=== PATIENT | female | born 1995 | race African-American/Black ===

== ENCOUNTER 2017-02-18 12:17 | Emergency (ER) | payer MEDICAID, OTHER ==
[~2017-02-18] VITALS: Ht 188 cm; Wt 57.2 kg
[~2017-02-18 12:17] MED LIST: MACR100C PO; RANI150 PO
[2017-02-18 12:28] VITALS: BP 113/58; PULSE 68; RESP 16; TEMP 98.4; O2SAT 99
[2017-02-18] MEDS ORDERED: ACYC200C66 PO (13:35)
--- NOTE | 2017-02-18 13:42 | PD ---
HPI Chief Complaint: Skin Problem Time Seen by Provider: 13:00 Travel History International Travel<30 days: No Contact w/Intl Traveler<30days: No Traveled to known affect area: No History of Present Illness HPI 21-year-old female presents to the emergency room for evaluation of herpes outbreak. Patient has had herpes diagnosis for the past 6 months. She got diagnosed during and is on acyclovir throughout her . States she was last on it one month ago. Patient states she felt pain in her genital area about 5 days ago and noticed a lesion there yesterday. She denies fever, chills, nausea, and vomiting. PFSH Past Medical History Medical History: Denies Significant Hx Anxiety: Yes Diminished Hearing: No Headaches: Yes Medical other: Yes (HSV) Immunizations Current: Yes ?: Not : 1 Para: 1 Past Surgical History Section: Yes Social History Alcohol Use: No Tobacco Use: No Substance Use: Yes Allergies-Medications (Allergen,Severity, Reaction): Coded Allergies: Zofran (Verified Allergy, Intermediate, hives, itchy rash, 02/18/17) Penicillin (Verified Allergy, Unknown, HIVES, 02/18/17) Reported Meds & Prescriptions Reported Meds & Active Scripts Active Acyclovir 200 Mg Cap 200 Mg PO 5 TIMES A DAY 10 Days Review of Systems Except as stated in HPI: all other systems reviewed are Neg Physical Exam Narrative GENERAL: Well-nourished, well-developed female in no acute distress. Afebrile. Ambulatory. SKIN: Focused skin assessment warm/dry. There is a single shallow, circular ulcer to the left lower buttocks. It is tender to palpation. HEAD: Normocephalic. EYES: No scleral icterus. No injection or drainage. NECK: Supple, trachea midline. No JVD or lymphadenopathy. CARDIOVASCULAR: Regular rate and rhythm without murmurs, gallops, or rubs. RESPIRATORY: Breath sounds equal bilaterally. No accessory muscle use. PSYCHIATRIC: No delusional thought processes. No hallucinations. Data Data Last Documented VS Vital Signs Date Time Temp Pulse Resp B/P Pulse Ox O2 Delivery O2 Flow Rate FiO2 02/18/17 12:28 98.4 68 16 113/58 99 MDM Medical Decision Making Medical Screen Exam Complete: Yes Emergency Medical Condition: Yes Medical Record Reviewed: Yes Differential Diagnosis Herpes simplex, shingles, bacterial infection Narrative Course 21-year-old female presents to the emergency room for evaluation of possible herpes outbreak. She was diagnosed with genital herpes 6 months ago. She was last on acyclovir one month ago. Patient denies associated malaise, fever, and chills. Physical exam reveals one single shallow ulcer to the left perineal region. It is tender to palpation. Given early presentation, patient will be treated with acyclovir. Patient told to follow-up the patient carrier or return to the emergency room for worsening symptoms. She understands and agrees to plan. Diagnosis Primary Impression: Genital herpes Qualified Code: A60.04 - Herpes simplex vulvovaginitis Referrals: [facility] Primary Care Physician Patient Instructions: General Instructions, Genital Herpes Simplex (ED) Additional Instructions: Rest and drink plenty of fluids. Take acyclovir as directed, until gone. Follow up with a primary care physician. Return to emergency room for worsening symptoms, as discussed. Med/Other Pt SpecificInfo: Prescription(s) given Scripts Acyclovir 200 Mg Tum053 Mg PO 5 TIMES A DAY 10 Days Ref 0 Prov:Judy Cook MD 02/18/17 Disposition: 01 DISCHARGE HOME Condition: Stable Jory Willams Feb 18, 2017 13:42
== END 2017-02-18 13:48 | disposition home or self-care (01) ==
LOC: PHEFT 12:17
DX: A60.04 Herpesviral vulvovaginitis (principal)
CPT/HCPCS: 99283

== ENCOUNTER 2017-10-09 14:52 | Emergency (ER) | payer MEDICAID ==
[~2017-10-09 14:52] MED LIST changes: +ACYC200C66 PO; -MACR100C PO; -RANI150 PO
[2017-10-09 14:53] VITALS: BP 132/79; PULSE 87; RESP 14; TEMP 98.3; O2SAT 100
[2017-10-09] MEDS ORDERED: ACETAMINOPHEN 500 MG CPLT PO ONE (15:30)
--- NOTE | 2017-10-09 15:57 | PD ---
HPI Chief Complaint: Cold / Flu Symptoms Time Seen by Provider: 15:07 Travel History International Travel<30 days: No Contact w/Intl Traveler<30days: No Traveled to known affect area: No History of Present Illness HPI This is a 22-year-old early female who presents to the emergency department with nasal congestion, sore throat, nonproductive cough and myalgias for 2 days, constant, moderate severity. She is otherwise healthy. [facility] Past Medical History Anxiety: Yes Diminished Hearing: No Headaches: Yes Immunizations Current: Yes ?: LMP: 08/29/18 : 1 Para: 1 Past Surgical History Section: Yes Social History Alcohol Use: No Tobacco Use: No Substance Use: Yes Allergies-Medications (Allergen,Severity, Reaction): Coded Allergies: ondansetron (Unverified Allergy, Intermediate, hives, itchy rash, 10/09/17) penicillin G (Unverified Allergy, Unknown, HIVES, 10/09/17) Reported Meds & Prescriptions Reported Meds & Active Scripts Active No Active Prescriptions or Reported Medications Review of Systems Except as stated in HPI: all other systems reviewed are Neg Physical Exam Narrative GENERAL:Well appearing, no acute distress SKIN: Focused skin assessment warm and dry. HEAD: Atraumatic. Normocephalic. EYES: Pupils equal and round. No injection or drainage. ENT: Moist mucous membranes. Mild posterior pharyngeal erythema with no exudates. NECK: Tender anterior cervical lymphadenopathy. CARDIOVASCULAR: Regular rate and rhythm. No murmur appreciated. RESPIRATORY: Clear to auscultation. Breath sounds equal bilaterally. GASTROINTESTINAL: Abdomen soft, non-tender, nondistended. MUSCULOSKELETAL: No obvious deformities. NEUROLOGICAL: Awake and alert. No obvious cranial nerve deficits. Moving all extremities. PSYCHIATRIC: Appropriate mood and affect; insight and judgment normal. Data Data Last Documented VS Vital Signs Date Time Temp Pulse Resp B/P (MAP) Pulse Ox O2 Delivery O2 Flow Rate FiO2 10/09/17 14:53 98.3 87 14 132/79 (96) 100 Room Air Orders Orders Group A Rapid Strep Screen (10/09/17 15:14) Influenzae A/B Antigen (10/09/17 15:14) Acetaminophen (Tylenol) (10/09/17 15:30) Strep Culture (Group A) (10/09/17 15:20) MDM Medical Decision Making Medical Screen Exam Complete: Yes Emergency Medical Condition: Yes Interpretation(s) Afebrile, no tachycardia, normotensive Influenza negative Strep negative Differential Diagnosis Strep pharyngitis, viral pharyngitis, influenza, viral syndrome Narrative Course This is a 22-year-old female early who presents to the emergency department with sore throat, rhinorrhea and cough. She is nontoxic appearing and has normal vital signs. Influenza and rapid strep were negative. I suspect patient has viral syndrome. I advised her to continue orally hydrating and she was instructed to take Tylenol for pain. Diagnosis Primary Impression: Viral syndrome Patient Instructions: General Instructions Additional Instructions: If you develop severe chest pain, shortness of breath, sweating, lightheadedness , dizziness or difficulty breathing return to the emergency department immediately. Followup with your primary care physician in 2-3 days if your symptoms are not resolved. Med/Other Pt SpecificInfo: No Change to Meds Scripts No Active Prescriptions or Reported Meds Disposition: 01 DISCHARGE HOME Condition: Stable Maria Antonia Hadley MD Oct 09, 2017 15:57
== END 2017-10-09 16:19 | disposition home or self-care (01) ==
LOC: NEPD 14:52
DX: O98.511 Other viral diseases complicating pregnancy, first trimester (principal); B34.9 Viral infection, unspecified; O99.341 Other mental disorders complicating pregnancy, first trimester; F41.9 Anxiety disorder, unspecified; Z3A.00 Weeks of gestation of pregnancy not specified
CPT/HCPCS: 87081; 87804; 87880; 99283

== ENCOUNTER 2017-10-27 15:30 | Emergency (ER) | payer MEDICAID ==
[~2017-10-27] VITALS: Ht 188 cm; Wt 54.2 kg
[2017-10-27 15:37] VITALS: BP 128/62; PULSE 66; RESP 16; TEMP 98.9; O2SAT 100
[2017-10-27] MEDS ORDERED: ACETAMINOPHEN 325 MG TAB PO ONE (16:00)
[2017-10-27] MEDS ORDERED: PREN29TA PO (16:12)
[2017-10-27] MEDS ORDERED: SODIUM CHLOR 0.9% 1000 ML INJ 1,000 ML IV ONE (16:15)
[2017-10-27] MEDS ORDERED: METOCLOPRAMIDE INJ 10 MG in SODIUM CHLORIDE 0.9% INJ 50 ML IV ONE (16:15)
--- NOTE | 2017-10-27 16:32 | PD ---
HPI Chief Complaint: Related Problem Time Seen by Provider: 16:00 Travel History International Travel<30 days: No Contact w/Intl Traveler<30days: No Traveled to known affect area: No History of Present Illness HPI 22yo F who is about 8 weeks 1 day by LMP of 08/31/17 here with c/o nausea and vomiting for 3 weeks. Said she has not been able to keep much down. Said she did go to [facility] 2 days ago and had US that showed IUP with FHR. Said she has had some left sided abdominal pain intermittently for 2 days. Said it is sharp. Denies any fever, chest pain, sob, vaginal discharge or bleeding. PFSH Past Medical History Medical History: Denies Significant Hx Anxiety: Yes Diminished Hearing: No Headaches: Yes Immunizations Current: Yes Tetanus Vaccination: < 5 Years Influenza Vaccination: No ?: LMP: 08/29/17 : 1 Para: 1 Miscarriage: 0 : 0 Past Surgical History Section: Yes Social History Alcohol Use: No Tobacco Use: No Substance Use: No Allergies-Medications (Allergen,Severity, Reaction): Coded Allergies: ondansetron (Unverified Allergy, Intermediate, hives, itchy rash, 10/27/17) penicillin G (Unverified Allergy, Unknown, HIVES, 10/27/17) Reported Meds & Prescriptions Reported Meds & Active Scripts Active Reported Plus Iron 29-1 mg ( Vit-Iron Carbonyl) Unknown Strength Tab Unknown Dose PO DAILY Review of Systems Except as stated in HPI: all other systems reviewed are Neg Physical Exam Narrative GENERAL: 22yo F not in distress. SKIN: Focused skin assessment warm/dry. HEAD: Atraumatic. Normocephalic. CARDIOVASCULAR: Regular rate and rhythm. No murmur appreciated. RESPIRATORY: No accessory muscle use. Clear to auscultation. Breath sounds equal bilaterally. GASTROINTESTINAL: Abdomen soft, non-tender, nondistended. No RLQ or LLQ ttp. No rebound tenderness or guarding. PELVIC: MUSCULOSKELETAL: No obvious deformities. No clubbing. No cyanosis. No edema. NEUROLOGICAL: Awake and alert. No obvious cranial nerve deficits. Motor grossly within normal limits. Normal speech. PSYCHIATRIC: Appropriate mood and affect; insight and judgment normal. Data Data Last Documented VS Vital Signs Date Time Temp Pulse Resp B/P (MAP) Pulse Ox O2 Delivery O2 Flow Rate FiO2 10/27/17 17:27 16 10/27/17 16:03 68 10/27/17 15:37 98.9 128/62 (84) 100 Orders Orders Beta Hcg (Quant/Titer) (10/27/17 16:00) Complete Blood Count With Diff (10/27/17 16:00) Comprehensive Metabolic Panel (10/27/17 16:00) Gc And Chlamydia Pcr (10/27/17 16:00) Wet Prep Profile (10/27/17 16:00) Urinalysis - C+S If Indicated (10/27/17 16:00) Acetaminophen (Tylenol) (10/27/17 16:00) Metoclopramide Inj (Reglan Inj) (10/27/17 16:15) Sodium Chlor 0.9% 1000 Ml Inj (Ns 1000 M (10/27/17 16:15) Ed Poc Ultrasound (10/27/17 ) Urine Culture (10/27/17 16:20) Metronidazole (Flagyl) (10/27/17 18:00) Potassium Chloride (Kcl) (10/27/17 18:00) Nitrofurantoin Monohyd Macrocr (Macrobid (10/27/17 18:00) Labs Laboratory Tests Test 10/27/17 16:20 10/27/17 16:25 10/27/17 16:50 10/27/17 16:58 Urine Color YELLOW Urine Turbidity CLEAR Urine pH 7.0 Urine Specific [place] 1.027 Urine Protein NEG mg/dL Urine Glucose (UA) NEG mg/dL Urine Ketones TRACE mg/dL Urine Occult Blood NEG Urine Nitrite NEG Urine Bilirubin NEG Urine Leukocyte Esterase SMALL Urine RBC 4-9 /hpf Urine WBC 9-14 /hpf Urine WBC Clumps FEW Urine Squamous Epithelial Cells 0-5 /hpf Urine Mucus FEW /lpf Microscopic Urinalysis Comment CULTURE INDICATED White Blood Count 5.6 TH/MM3 Red Blood Count 3.96 MIL/MM3 Hemoglobin 12.4 GM/DL Hematocrit 36.6 % Mean Corpuscular Volume 92.5 FL Mean Corpuscular Hemoglobin 31.2 PG Mean Corpuscular Hemoglobin Concent 33.7 % Red Cell Distribution Width 12.6 % Platelet Count 266 TH/MM3 Mean Platelet Volume 8.2 FL Neutrophils (%) (Auto) 62.1 % Lymphocytes (%) (Auto) 28.9 % Monocytes (%) (Auto) 7.1 % Eosinophils (%) (Auto) 0.4 % Basophils (%) (Auto) 1.5 % Neutrophils # (Auto) 3.5 TH/MM3 Lymphocytes # (Auto) 1.6 TH/MM3 Monocytes # (Auto) 0.4 TH/MM3 Eosinophils # (Auto) 0.0 TH/MM3 Basophils # (Auto) 0.1 TH/MM3 CBC Comment DIFF FINAL Differential Comment Clue Cells (Wet Prep) NONE SEEN Vaginal Trichomonas (Wet Prep) PRESENT Vaginal Yeast (Wet Prep) NONE SEEN Blood Urea Nitrogen 8 MG/DL Creatinine 0.70 MG/DL Random Glucose 88 MG/DL Total Protein 7.0 GM/DL Albumin 3.6 GM/DL Calcium Level 8.1 MG/DL Alkaline Phosphatase 48 U/L Aspartate Amino Transf (AST/SGOT) 23 U/L Alanine Aminotransferase (ALT/SGPT) 17 U/L Total Bilirubin 0.4 MG/DL Sodium Level 135 MEQ/L Potassium Level 3.2 MEQ/L Chloride Level 104 MEQ/L Carbon Dioxide Level 23.2 MEQ/L Anion Gap 8 MEQ/L Estimat Glomerular Filtration Rate 125 ML/MIN Human Chorionic Gonadotropin, Quant 313999 MIU/ML MDM Medical Decision Making Medical Screen Exam Complete: Yes Emergency Medical Condition: Yes Differential Diagnosis Hyperemesis gravidarum vs. dehydration vs. electrolyte abnormality vs. UTI Narrative Course 22yo F who is 8weeks has been nauseous and having intermittent vomiting for 3 weeks. Vital signs normal. Will check electrolytes, UA and give reglan and NS IVF. Pt said she has left lower abdominal pain but no tenderness on exam. Will give acetaminophen. Bedside US showed IUP. Labs reviewed, no leukocytosis. Mild hypokalemia, replaced orally. CG [id number]. UA showed trace ketone. WBC 9-14. Will cover with macrobid. Wet prep showed positive trichomonas. Pt given first dose of metronidazole and macrobid. Although there is conflicting studies regarding metronidazole for trichomoniasis in first trimester, I discussed with OB hospitalist Dr. Tran and she said she also still gives it. Pt was given reglan and NS IVF. Reevaluated at bedside and is tolerating PO now. Said nausea resolved. Return precautions given. Procedures Procedure Narrative Emergency Department Pelvic ultrasound was performed with patient consent. The curvilinear probe was used in the transverse and sagittal views within the suprapubic region revealing single intrauterine . heart rate was 167bpm. Diagnosis Primary Impression: Vaginal trichomoniasis Additional Impression: Nausea & vomiting Qualified Codes: R11.2 - Nausea with vomiting, unspecified Patient Instructions: General Instructions Departure Forms: Tests/Procedures Additional Instructions: Please follow up with your OBGYN in 2-3 days. Return to the ED if symptoms worsen. Med/Other Pt SpecificInfo: Prescription(s) given Scripts Acetaminophen (Tylenol) 325 Mg Tab 650 MG PO Q6H Y for PAIN SCALE 1 TO 4, #20 TAB 0 Refills Prov: Millie Garcia DO 10/27/17 Nitrofurantoin Monohydrate Macrocrystals (Macrobid) 100 Mg Cap 100 MG PO BID for Infection for 5 Days, #10 CAP 0 Refills Prov: Millie Garcia DO 10/27/17 Metronidazole (Metronidazole) 500 Mg Tab 500 MG PO BID for Infection for 7 Days, #14 TAB 0 Refills Prov: Millie Garcia DO 10/27/17 Disposition: 01 DISCHARGE HOME Condition: Stable Millie Garcia DO Oct 27, 2017 16:32
[2017-10-27 16:33] LABS: AUTOMATED NEUTROPHIL # 3.5 TH/MM3 (1.8-7.7); BASOPHIL # 0.1 TH/MM3 (0-0.2); BASOPHIL % 1.5 % (0.0-2.0); EOSINOPHIL % 0.4 % (0.0-4.0); HEMATOCRIT 36.6 % (35.0-46.0); HEMOGLOBIN 12.4 GM/DL (11.6-15.3); LYMPH % 28.9 % (9.0-44.0); LYMPHOCYTE # 1.6 TH/MM3 (1.0-4.8); MEAN CELL VOLUME 92.5 FL (80.0-100.0); MEAN CORPUSCULAR HEMOGLOBIN 31.2 PG (27.0-34.0); MEAN CORPUSCULAR HGB CONC 33.7 % (32.0-36.0); MEAN PLATELET VOLUME 8.2 FL (7.0-11.0); MONO % 7.1 % (0.0-8.0); MONOCYTE # 0.4 TH/MM3 (0-0.9); NEUT % 62.1 % (16.0-70.0); PLATELET COUNT 266 TH/MM3 (150-450); RED BLOOD COUNT 3.96 MIL/MM3 (4.00-5.30); RED CELL DISTRIBUTION WIDTH 12.6 % (11.6-17.2); WHITE BLOOD COUNT 5.6 TH/MM3 (4.0-11.0)
[2017-10-27 16:34] LABS: BILIRUBIN, URINE NEG (NEG); BLOOD, URINE NEG (NEG); GLUCOSE,URINE NEG (NEG); KETONE, URINE TRACE mg/dL (NEG); NITRITE,URINE NEG (NEG); URINE LEUKOCYTE ESTERASE SMALL (NEG)
[2017-10-27 16:44] LABS: URINE COLOR YELLOW (YELLW/STRAW)
[2017-10-27 16:45] LABS: MUCUS URINE FEW /lpf (OCC); WHITE BLOOD CELL CLUMPS FEW
[2017-10-27 16:46] LABS: SQUAMOUS EPITHELIAL CELL URINE 0-5 /hpf (0-5)
[2017-10-27 17:16] LABS: CHLORIDE 104 MEQ/L (98-107); SODIUM (NA) 135 MEQ/L (136-145)
[2017-10-27 17:19] LABS: CALCIUM 8.1 MG/DL (8.5-10.1); GLUCOSE,RANDOM 88 MG/DL (74-106)
[2017-10-27 17:20] LABS: ALBUMIN 3.6 GM/DL (3.4-5.0); BICARBONATE 23.2 MEQ/L (21.0-32.0); BLOOD UREA NITROGEN 8 MG/DL (7-18)
[2017-10-27 17:23] LABS: ALT (GPT) 17 U/L (10-53); AST (GOT) 23 U/L (15-37); GLOMERULAR FILTRATION RATE 125 ML/MIN (>89)
[2017-10-27 17:24] LABS: TOTAL BILIRUBIN ADULT 0.4 MG/DL (0.2-1.0)
[2017-10-27 17:25] LABS: ALKALINE PHOSPHATASE 48 U/L (45-117)
[2017-10-27] MEDS ORDERED: NITROFURANTOIN MONOHYD MACROCR 100 MG CAP PO ONE (18:00)
[2017-10-27] MEDS ORDERED: POTASSIUM CHLORIDE 20 MEQ CONTROLLED RELEASE TAB PO ONE (18:00)
[2017-10-27] MEDS ORDERED: metroNIDAZOLE 500 MG TAB PO ONE (18:00)
[2017-10-27] MEDS ORDERED: METR1TAB76 PO (18:48)
[2017-10-27] MEDS ORDERED: MACR100C2 PO (18:48)
[2017-10-27] MEDS ORDERED: TYLE325T PO (18:48)
[2017-10-27 19:00] VITALS: BP 139/75; PULSE 69; RESP 16; O2SAT 100
[2017-10-27 19:23] VITALS: BP 123/68
== END 2017-10-27 19:38 | disposition home or self-care (01) ==
LOC: PHED 15:30
DX: O98.311 Other infections with a predominantly sexual mode of transmission complicating pregnancy, first trimester (principal); A59.01 Trichomonal vulvovaginitis; Z3A.08 8 weeks gestation of pregnancy; O21.9 Vomiting of pregnancy, unspecified; R82.99 Other abnormal findings in urine; Z88.0 Allergy status to penicillin; Z88.8 Allergy status to other drugs, medicaments and biological substances
CPT/HCPCS: 80053; 81001; 84702; 85025; 87086; 87210; 87491; 87591; 96361; 96365; 99284; J2765; J7030

== ENCOUNTER 2018-10-25 17:24 | Inpatient (IN) ==
[2018-10-25] MEDS ORDERED: Ketorolac Inj 30 MG/ML (IVP) Vial IV.PUSH ONE (20:22)
[2018-10-25] MEDS ORDERED: Sod Chloride 0.9% Inj 1,000 ML IV.SIG ONE (20:22)
[2018-10-25 20:55] LABS: Baso # (Auto) 0.1 th/mm3 (0.0-0.2); Baso % (Auto) 1.5 % (0.0-2.0); Eos # (Auto) 0.1 th/mm3 (0.0-0.4); Eos % (Auto) 1.5 % (0.0-4.0); Hematocrit 35.8 % (35.0-46.0); Hemoglobin 11.8 gm/dL (11.6-15.3); Lymph # (Auto) 2.1 th/mm3 (1.0-4.8); Lymph % (Auto) 43.8 % (9.0-44.0); Mean Corpuscular HGB Conc 32.9 % (32.0-36.0); Mean Corpuscular Hemoglobin 30.4 pg (27.0-34.0); Mean Corpuscular Volume 92.4 fL (80.0-100.0); Mean Platelet Volume 7.6 fL (7.0-11.0); Mono # (Auto) 0.4 th/mm3 (0.0-0.9); Mono % (Auto) 9.1 % (0.0-8.0); Neut # (Auto) 2.2 th/mm3 (1.8-7.7); Neut % (Auto) 44.1 % (16.0-70.0); Platelet Count 251 th/mm3 (150-450); Red Blood Count 3.87 mil/mm3 (4.00-5.30); Red Cell Distribution Width 13.6 % (11.6-17.2); White Blood Count 4.9 th/mm3 (4.0-11.0)
[2018-10-25 21:01] LABS: Chloride 110 meq/L (98-107); Potassium 3.8 meq/L (3.5-5.1); Sodium 141 meq/L (136-145)
[2018-10-25 21:04] LABS: Anion Gap 6 meq/L (5-15); Calcium 8.9 mg/dL (8.5-10.1); Carbon Dioxide 25.1 meq/L (21.0-32.0); Glucose,Random 82 mg/dL (74-106)
[2018-10-25 21:05] LABS: Blood Urea Nitrogen 14 mg/dL (7-18)
[2018-10-25 21:06] LABS: Activated Partial Thrombo Time 27.3 sec (23.4-31.7); INR 1.1 Ratio; Prothrombin Time 10.7 sec (9.8-11.6)
[2018-10-25 21:08] LABS: Glomerular Filtration Rate Greater Than 89 mL/min (>89)
--- NOTE | 2018-10-25 21:14 | ED ---
HPI General Chief Complaint: Headache Stated Complaint: Headache/Lft Eye Blurriness [id number] Time Seen by Provider: 10/25/18 20:17 Source: patient Mode of arrival: ambulatory Limitations: no limitations History of Present Illness HPI Narrative: 23-year-old female presents to the emergency department for evaluation of a headache that started 10 days ago. She states that she has had similar headaches but says this is different as it is focused in the left side near her neck and radiates to the neck. She says that her vision has changed and describes it as intermittent, black, spotty and is as if she is looking through a hole. She says currently her pain is 9 out of 10 and focused in the left side of her head. She says her pain is worse with movement of her eyes. She has mild photophobia. Denies nausea, vomiting or diarrhea. Denies numbness or tingling to extremities. States that she has been taking Tylenol without relief. She denies dizziness or vertigo type symptoms. She has not been evaluated for her headaches by her primary care physician or any other specialist. MD Complaint: Reports headache Related Data Home Medications Medication Instructions Recorded Confirmed No Known Home Medications 09/11/18 10/25/18 Allergies Allergy/AdvReac Type Severity Reaction Status Date / Time ondansetron Allergy Severe Rash, hives Verified 09/11/18 16:50 penicillin G Allergy Severe Hives Verified 09/11/18 16:50 Review of Systems ROS: all other systems reviewed are negative [facility] Social History Social History Substance History: No History of Abuse Second Hand Smoke Exposure: No Smoking Status: Never smoker How Often Do You Have a Drink Containing Alcohol: Never Recent Travel in [facility] within the Last 8 Weeks: No Recent Out of Country Travel within the Last 8 Weeks: No Immunization History Tetanus Immunization: <5 Years Exam Narrative Exam Narrative: GENERAL: WD, WN in NAD SKIN: Focused skin assessment warm/dry. HEAD: Atraumatic. Normocephalic. EYES: Pupils equal and round. No scleral icterus. No injection or drainage. EOMI with increased discomfort, especially with the left eye. Right [id number] 19 and 21. Left [id number]-Arti-[id number] 15 and 19 ENT: No nasal bleeding or discharge. Mucous membranes pink and moist. No tonsillar hypertrophy or exudate. NECK: Trachea midline. No JVD. No meningismus. No midline tenderness. CARDIOVASCULAR: Regular rate and rhythm. No murmur appreciated. RESPIRATORY: No accessory muscle use. Clear to auscultation. Breath sounds equal bilaterally. MUSCULOSKELETAL: No obvious deformities. No clubbing. No cyanosis. No edema. No tenderness to palpation of the calves. Sensation intact to bilateral lower extremities. NEUROLOGICAL: Awake and alert. Decreased peripheral vision to the 12:00 and 4 o 'clock position, otherwise no focal neuro deficits. motor and sensory grossly within normal limits. Five out of 5 muscle strength in all muscle groups. Normal speech. No pronator drift PSYCHIATRIC: Appropriate mood and affect; insight and judgment normal. Course Consultations Consultation #1: discussed with Dr Bates Initial Documented Vital Signs Temperature 98.4 F 10/25/18 17:37 Pulse Rate 60 10/25/18 17:37 Blood Pressure 120/62 10/25/18 17:37 Pulse Oximetry 99 10/25/18 17:37 Last Documented Vital Signs Temperature 98.4 F 10/25/18 17:37 Pulse Rate 60 10/26/18 02:30 Respiratory Rate 18 10/26/18 02:30 Blood Pressure 102/51 L 10/26/18 02:30 Pulse Oximetry 98 10/26/18 02:30 Medical Decision Making PASCUAL Attestation PASCUAL supervised visit: Yes Attestation: I, Dr. Diego, have reviewed the advance practice practitioner's documentation and am in agreement, met with the patient face to face, made the diagnosis, and the medical decision making was done by me. *My assessment and Findings: 23-year-old female with history of headaches without diagnosis of migraine or cluster headaches and no autoimmune disorder or family history of headaches presents to the emergency department for 10 days of left-sided headache retro-orbital with development of tunnel vision presents for evaluation. Headache is not sudden onset thunderclap or worst ever but persistent. No prior history of ocular related symptoms. Patient has no neck pain or stiffness. No upper extremity or lower extremity numbness tingling or weakness. No facial droop no confusion no change in speech. Patient has no loss of vision has no stuttering vision. Patient does not wear glasses. Patient is 5 months . Patient takes no hormone replacement therapy or control pills. Patient had no fever no chills no nausea no vomiting no cough no congestion no respiratory illness symptoms also denies any flank pain or low back pain or urinary tract symptoms. Patient denies . Patient is breast-feeding. Patient is taking acetaminophen for pain without relief. On physical exam patient has NIH SS of 1 due to field cut affecting the left eye only. Physical exam otherwise unremarkable vital signs stable. Patient administered Benadryl and Compazine for pain management. Imaging along with blood work performed including CT brain noncontrast CTA of the head and neck; r/o cva, retanl vn/aa, occlusion glaucoma, retinal detachment, cavernous sinus occlusion, ms, tumor, unlikely temporal arteritis. Lab values in normal range white count is normal sed rate is normal. Ocular pressures in normal range. CT brain noncontrast reveals no acute abnormality CT of the head and CT of the neck are reported as normal per reading radiologist. Patient's case discussed with on-call neurologist for recommendations regarding need for MR and MRV to evaluate for cavernous sinus thrombosis otherwise anticipate patient has ocular migraine/complex migraine and recommends proceeding with imaging which will be done stat tonight. Patient subsequently identifies that her vision has returned to normal she has no visual disturbance no tunneling or vision and has no headache. Visual acuity is right eye 20/20 left eye 20/20 both eyes 20/15 without corrective visual check and does not wear corrective lenses. Discussed with [facility] service --admit to Dr Beltran [facility] Narrative Medical decision making narrative: 23-year-old female presents to the emergency department evaluation of a headache and left eye visual changes. She says the headache started about 10 days ago and follows to usual pattern but is different because of the visual changes in her left eye. She denies dizziness, vertigo symptoms. Denies numbness or tingling to extremities. She states she has not been evaluated for her headaches previously and has not been diagnosed with migraines. She denies history of autoimmune disorders or any other medical problems. She denies chronic medical issues or medication use. Ordered labs and CTs for evaluation. Benadryl, Toradol, Compazine, 1 L normal saline administered. Ortega-Pen pressures performed and normal. Visual acuity is reassuring. Reassess patient multiple times and she states her headache has significantly improved. @2230 she states she no longer has visual changes or blurred vision. Labs are stable. ESR 3. CTs are without acute process. Please see my attending's note regarding the conversation with neurology. Discussed case with on-call neurologist recommends MRI of the brain as well as MRV. Patient and spouse aware of plan for proceeding with stat imaging tonight. At 2 AM MRV and MRI studies resulted MRV study no acute abnormality however MRI of the brain does show evidence of small lacunar infarct and possible demyelinating changes concerning for MS/chronic htn (pt no h/o htn) Test results discussed with the patient and patient admitted to [facility] service to Dr. Beltran Medical Screen Exam Complete: Yes Emergency Medical Condition: Yes Differential Diagnosis Differential Diagnosis: Complicated migraine, CVA, TIA, headache Lab Data Result diagrams: 10/25/18 20:45 10/25/18 20:45 POC Results POC Urine Results Negative Lab Results 10/25/18 10/25/18 10/25/18 Range/Units 20:45 20:45 20:45 CBC w Diff Auto diff final WBC 4.9 (4.0-11.0) th/mm3 RBC 3.87 L (4.00-5.30) mil/mm3 Hgb 11.8 (11.6-15.3) gm/dL Hct 35.8 (35.0-46.0) % MCV 92.4 (80.0-100.0) fL MCH 30.4 (27.0-34.0) pg MCHC 32.9 (32.0-36.0) % RDW 13.6 (11.6-17.2) % Plt Count 251 (150-450) th/mm3 MPV 7.6 (7.0-11.0) fL Neut % (Auto) 44.1 (16.0-70.0) % Lymph % (Auto) 43.8 (9.0-44.0) % Angelina % (Auto) 9.1 H (0.0-8.0) % Eos % (Auto) 1.5 (0.0-4.0) % Baso % (Auto) 1.5 (0.0-2.0) % Neut # (Auto) 2.2 (1.8-7.7) th/mm3 Lymph # (Auto) 2.1 (1.0-4.8) th/mm3 Angelina # (Auto) 0.4 (0.0-0.9) th/mm3 Eos # (Auto) 0.1 (0.0-0.4) th/mm3 Baso # (Auto) 0.1 (0.0-0.2) th/mm3 WBC Differential . Differential Comment . ESR (0-20) mm/hr PT 10.7 (9.8-11.6) sec INR 1.1 Ratio APTT 27.3 (23.4-31.7) sec Sodium 141 (136-145) meq/L Potassium 3.8 (3.5-5.1) meq/L Chloride 110 H (98-107) meq/L Carbon Dioxide 25.1 (21.0-32.0) meq/L Anion Gap 6 (5-15) meq/L BUN 14 (7-18) mg/dL Creatinine 0.80 (0.50-1.00) mg/dL Estimated GFR Greater than 89 (>89) mL/min Random Glucose 82 (74-106) mg/dL Calcium 8.9 (8.5-10.1) mg/dL 10/25/18 Range/Units 20:45 CBC w Diff WBC (4.0-11.0) th/mm3 RBC (4.00-5.30) mil/mm3 Hgb (11.6-15.3) gm/dL Hct (35.0-46.0) % MCV (80.0-100.0) fL MCH (27.0-34.0) pg MCHC (32.0-36.0) % RDW (11.6-17.2) % Plt Count (150-450) th/mm3 MPV (7.0-11.0) fL Neut % (Auto) (16.0-70.0) % Lymph % (Auto) (9.0-44.0) % Angelina % (Auto) (0.0-8.0) % Eos % (Auto) (0.0-4.0) % Baso % (Auto) (0.0-2.0) % Neut # (Auto) (1.8-7.7) th/mm3 Lymph # (Auto) (1.0-4.8) th/mm3 Angelina # (Auto) (0.0-0.9) th/mm3 Eos # (Auto) (0.0-0.4) th/mm3 Baso # (Auto) (0.0-0.2) th/mm3 WBC Differential Differential Comment ESR 3 (0-20) mm/hr PT (9.8-11.6) sec INR Ratio APTT (23.4-31.7) sec Sodium (136-145) meq/L Potassium (3.5-5.1) meq/L Chloride (98-107) meq/L Carbon Dioxide (21.0-32.0) meq/L Anion Gap (5-15) meq/L BUN (7-18) mg/dL Creatinine (0.50-1.00) mg/dL Estimated GFR (>89) mL/min Random Glucose (74-106) mg/dL Calcium (8.5-10.1) mg/dL Imaging Data Radiologist's impression: Head CT 10/25/18 20:22 CONCLUSION: No intracranial abnormality. . . Head CTA 10/25/18 20:26 CONCLUSION: Negative CTA of the head. . . Neck CTA 10/25/18 20:26 CONCLUSION: 1. Motion artifact. No definite carotid stenosis. Head MRI 10/26/18 23:24 CONCLUSION: 1. Scattered periventricular and deep white matter tract areas of increased T2 FLAIR signal intensity are more than expected for the patient's stated chronologic age could represent a demyelinating process such as MS or chronic hypertension. Largest lesion measures 1 cm in diameter in the central right ochoa radiata. No areas of enhancement to suggest an active demyelinating plaque, however. 2. Focal area of true diffusion restriction near the apex of the anterior horn of the left lateral ventricle characteristic of a small acute or subacute lacunar type infarct. Head/Brain Mag Res Venography 10/26/18 23:24 CONCLUSION: Negative MRV Brain with and without contrast. Discharge Plan Discharge Disposition Patient Disposition: ED Admit(ED Internal Use Only) Discharge Condition Condition: Stable Discharge Order Discharge Orders: ED Use Only Admit Order (Routine); Ordered 10/26/18 Ordered By: Malathi Diego Discharge Details Diagnosis: Lacunar infarct, acute Physicians Team ED Provider: Malathi Diego ED Midlevel Provider: Jackelin Love Primary Care Provider: Primary Care Will,Adelia Attending Provider: Jes Beltran Other Providers: Basil Preciado ED Status: Admitted Patient
--- NOTE | 2018-10-25 21:38 | CT ---
EXAM DATE: 10/25/2018 9:35 PM EST AGE/SEX: 23 years / Female INDICATIONS: Headaches with left eye blurred vision 10 days CLINICAL DATA: This is the patient's initial encounter. Patient reports that signs and symptoms have been present for 1 week and indicates a pain score of 7/10. MEDICAL/SURGICAL HISTORY: None. None. RADIATION DOSE: 60.75 CTDI (mGy) COMPARISON: No prior exams available for comparison. TECHNIQUE: CT of the head without contrast. Using automated exposure control and adjustment of the mA and/or kV according to patient size, radiation dose was kept as low as reasonably achievable to ob tain optimal diagnostic quality images. DICOM format image data is available electronically for revi ew and comparison. FINDINGS: Cerebrum: The ventricles are normal for age. No evidence of midline shift, mass lesion, hemorrhage or acute infarction. No extraaxial fluid collections are seen. Posterior Fossa: The cerebellum and brainstem are intact. The 4th ventricle is midline. The cerebe llopontine angle is unremarkable. Extracranial: The visualized portion of the orbits is intact. Skull: The calvaria is intact. No evidence of skull fracture. CONCLUSION: No intracranial abnormality. . . Electronically signed by: Nguyễn Herrera MD Board Certified Radiologist 10/25/2018 9:37 PM EST
--- NOTE | 2018-10-25 22:03 | CT ---
EXAM DATE: 10/25/2018 9:59 PM EST AGE/SEX: 23 years / Female INDICATIONS: Headache with Left eye blurred vision 10 days CLINICAL DATA: This is the patient's initial encounter. Patient reports that signs and symptoms have been present for 1 week and indicates a pain score of 7/10. MEDICAL/SURGICAL HISTORY: None. None. RADIATION DOSE: 42.78 CTDI (mGy) ; Combined studies COMPARISON: No prior exams available for comparison. TECHNIQUE: Volumetric scanning was performed using a multi-row detector CT scanner during bolus infu katharina of 75ML ml Omnipaque 350 (iohexol) nonionic water-soluble contrast as a cumulative dose for mul tiple exams. The data was post processed with a variety of visualization algorithms including full volume maximum intensity projection, multi-planar sliding thin slab reformation, curved planar reform ation, and surface rendering techniques. Using automated exposure control and adjustment of the mA a nd/or kV according to patient size, radiation dose was kept as low as reasonably achievable to obtain optimal diagnostic quality images. DICOM format image data is available electronically for review a nd comparison. FINDINGS: There is excellent visualization of the major intracranial arteries out to the second-order branch ve ssels. There is no evidence for aneurysm, vessel truncation or stenosis, and no evidence for vascula r malformation. CONCLUSION: Negative CTA of the head. . . Electronically signed by: Nguyễn Herrera MD Board Certified Radiologist 10/25/2018 10:02 PM EST
--- NOTE | 2018-10-25 22:35 | CT ---
EXAM DATE: 10/25/2018 10:30 PM EST AGE/SEX: 23 years / Female INDICATIONS: Headaches with left eye blurred vision 10 days CLINICAL DATA: This is the patient's initial encounter. Patient reports that signs and symptoms have been present for 1 week and indicates a pain score of 7/10. MEDICAL/SURGICAL HISTORY: None. None. RADIATION DOSE: 42.78 CTDI (mGy) ; Combined studies COMPARISON: No prior exams available for comparison. TECHNIQUE: Volumetric scanning was performed using a multirow detector CT scanner during bolus infus ion of 75ML ml Omnipaque 350 (iohexol) nonionic water-soluble contrast as a cumulative dose for mult iple exams. The data was postprocessed with a variety of visualization algorithms including full-vo lume maximum intensity projection, multiplanar sliding thin-slab reformation, curved-planar reformati on, and surface-rendering techniques. Using automated exposure control and adjustment of the mA and/ or kV according to patient size, radiation dose was kept as low as reasonably achievable to obtain op timal diagnostic quality images. DICOM format image data is available electronically for review and comparison. FINDINGS: Motion artifact limiting evaluation. Aortic Arch: There is a three-vessel origin of the great vessels from the aorta. No evidence of ost ial narrowing Right Carotid: The common carotid artery is intact. The carotid bulb has a normal configuration wit hout ulceration or narrowing. The internal carotid artery lumen is smooth without stenosis. The ext ernal carotid artery is intact. Left Carotid: The common carotid artery is intact. The carotid bulb has a normal configuration with out ulceration or narrowing. The internal carotid artery lumen is smooth without stenosis. The exte rnal carotid artery is intact. Vertebrals: The vertebral arteries have a symmetric diameter. No stenotic lesions are seen. Percent stenosis is calculated using the diameter of the stenotic region over the diameter of the nor mal distal internal carotid artery. CONCLUSION: 1. Motion artifact. No definite carotid stenosis. Electronically signed by: Jimi Maloney MD Board Certified Radiologist 10/25/2018 10:33 PM EST
[2018-10-26] MEDS ORDERED: Gadobutrol PF 10 MMOL/10 ML Vial (for RAD) IV.SIG ONE (01:23)
--- NOTE | 2018-10-26 01:45 | MR ---
EXAM DATE: 10/26/2018 1:29 AM EST AGE/SEX: 23 years / Female INDICATIONS: Stroke. CLINICAL DATA: This is the patient's initial encounter. Patient reports that signs and symptoms have been present for 1 week and indicates a pain score of 8/10. MEDICAL/SURGICAL HISTORY: . Headaches. section. COMPARISON: [facility], MRV HEAD W & W/O CONTRAST, 10/26/2018. . TECHNIQUE: Multiplanar, multisequence examination of the brain was performed without and with 10 ml G adavist (gadobutrol) contrast as a single exam dose. FINDINGS: Cerebrum: The ventricles are normal for age. No evidence of midline shift, mass lesion or hemorrhag e. No extraaxial fluid collections are seen. The pituitary gland and suprasellar cistern are normal in configuration. White Matter: A few scattered areas of periventricular and deep white matter tract increased T2 FLAI R signal intensity with a prominent, 1 cm ovoid lesion in the right ochoa radiata.. Posterior Fossa: The cerebellum and brainstem are intact. The 4th ventricle is midline. The cerebel lopontine angle is unremarkable. The cerebellar tonsils are normal in position. Diffusion Imaging: The ovoid area in the right ochoa radiata shows increased signal on the diffusio n weighted images but there is no corresponding diminished signal on the ADC map. This likely represe nts an area of T2 shine through. However, a second area near the apex of the frontal horn of the left lateral ventricle also show some increase diffusion signal with diminished signal on the ADC maps ch aracteristic of an acute or subacute lacunar type infarct. Extracranial: The visualized portions of the orbits and paranasal sinuses are unremarkable. Post Contrast: No abnormal areas of parenchymal or dural enhancement. No evidence of blood-brain ba rrier breakdown. CONCLUSION: 1. Scattered periventricular and deep white matter tract areas of increased T2 FLAIR signal intensit y are more than expected for the patient's stated chronologic age could represent a demyelinating pro cess such as MS or chronic hypertension. Largest lesion measures 1 cm in diameter in the central righ t ochoa radiata. No areas of enhancement to suggest an active demyelinating plaque, however. 2. Focal area of true diffusion restriction near the apex of the anterior horn of the left lateral v entricle characteristic of a small acute or subacute lacunar type infarct. Electronically signed by: Ozzy Ivan MD Board Certified Radiologist 10/26/2018 1:44 AM EST
--- NOTE | 2018-10-26 01:57 | MR ---
EXAM DATE: 10/26/2018 1:38 AM EST AGE/SEX: 23 years / Female INDICATIONS: Stroke. CLINICAL DATA: This is the patient's initial encounter. Patient reports that signs and symptoms have been present for 1 week and indicates a pain score of 9/10. MEDICAL/SURGICAL HISTORY: . Headaches. section. COMPARISON: [facility], MR HEAD W & W/O CONTRAST, 10/26/2018. . TECHNIQUE: MR cerebral venography is performed without and with 10 ml Gadavist (gadobutrol) contrast (single exam dose). Source images, 3D volume MIP, and sliding thin slab MIP reconstructions were re viewed. FINDINGS: There is excellent visualization of the major intracranial arteries out to the second-order branch ve ssels. There is no evidence for aneurysm, vessel truncation or stenosis, and no evidence for vascula r malformation. CONCLUSION: Negative MRV Brain with and without contrast. Electronically signed by: Ozzy Ivan MD Board Certified Radiologist 10/26/2018 1:56 AM EST
[2018-10-26] MEDS ORDERED: Dextrose 50% in Water 50 ML Vial IV.PUSH PRN (02:56)
[2018-10-26] MEDS ORDERED: Insulin NovoLOG Aspart Correctional Sugar Inj SQ PRN (02:56)
[2018-10-26] MEDS: Sod Chloride 0.9% Inj 1,000 ML IV.CONT SCH ×2 (04:50→21:47)
[2018-10-26] MEDS ORDERED: Aspirin 325 MG Tablet PO SCH (09:00)
[2018-10-26] MEDS ORDERED: MethylPREDNISolone Sod Succinate Inj 40 MG/ML Vial IV.PUSH SCH (10:00)
--- NOTE | 2018-10-26 10:16 | MB ---
cc: Basil Preciado MD, PhD DATE: 10/26/2018 REASON FOR CONSULTATION: Headache. HISTORY OF PRESENT ILLNESS: This is a very pleasant 23-year-old female who has a history of intermittent headaches in the past who 10 days ago had a severe headache, left side of the head, which came on fairly abruptly. This was more severe than usual. The neck was also painful and it was radiating to the neck. Two days ago, she states she had visual changes in the left eye. She lost vision in the eye temporarily, but then came back. Now it is blurry. Denies any fevers or chills. The headache at the present time is completely resolved. FAMILY HISTORY: Remarkable for migraine headaches. PAST MEDICAL HISTORY: Otherwise unremarkable. MEDICATIONS: None. She does not take any estrogens. No oral contraceptives. SOCIAL HISTORY: Denies alcohol use, smoking, or drug abuse. NEUROLOGICAL EXAMINATION: VITAL SIGNS: Blood pressure is 113/68, pulse is 63, respirations are 18, temperature 98.4 degrees. NEUROLOGIC: Higher cortical functions are completely normal. Neck is supple with no meningismus. Cranial nerves are intact. She is able to count fingers in the left eye. Pupils are equal and reactive. Extraocular movements are normal. Motor exam is 5/5 strength of all groups in both upper and lower extremities. There is no drift. Fine motor skills within normal limits. Reflexes are symmetric. IMAGING STUDIES: MRI of the brain: Scattered periventricular deep white matter tract areas of increased T2 FLAIR signal possibly representing a demyelinating process. There is no evidence of any enhancement. There is a focal area of diffusion restriction near the apex of the anterior horn of the left lateral ventricle, possible acute or subacute infarct. CT of the brain is within normal limits. CTA of the neck is normal and no evidence of any carotid artery stenosis. CT angiogram of the brain is normal. She had a brain MR venography which was negative. No evidence of any venous sinus thrombosis. LABORATORY DATA: White count 4900, hemoglobin 11.8, hematocrit 35%, platelet count 251,000. Sedimentation rate is 3. PT 10.7, INR 1.1, aPTT 27.3. Sodium is 141, potassium 3.8, chloride 110, BUN is 14, creatinine 0.8, glucose is 103, calcium 8.9. IMPRESSION: Severe headache, which by history sounds suggestive of migraine headache; however, the visual loss in the left eye is concerning. With the MRI findings, this could have represented optic neuritis, although at the present time it is improving. I do not see a definite Dionicio Skinny pupil. RECOMMENDATIONS: I would recommend lumbar puncture for further evaluation to rule out demyelinating disease. I did discuss this with the patient. At the present time, she wishes to hold off. We will discuss this further with the patient. Would consider as well a course of Solu-Medrol 250 mg IV q.6 hours for 3 days for probable optic neuritis. Would recommend a followup MRI of the brain as well. Regarding the diffusion abnormality, would recommend echocardiogram to rule out potential embolic source. Also, would recommend further evaluation for hypercoagulable state, checking a sedimentation rate, CASEY, lupus anticoagulant, anticardiolipin antibodies, protein S, protein C, Leiden Factor V, and prothrombin gene mutation. Basil Preciado MD, PhD LAQUITA/frankie , 08:47 AM , 08:54 AM
--- NOTE | 2018-10-26 10:55 | ECHRPT ---
Indication: CVA/TIA CONCLUSIONS Normal left ventricular size. Wall thickness is normal. The left ventricular systolic function is normal with an estimated ejection fraction in the range of 60-65%. Trace mitral valve regurgitation. There is trace tricuspid valve regurgitation. Mild pulmonary valve regurgitation. BP: / HR: Rhythm: Sinus MEASUREMENTS (Male / Female) Normal Values Technical Quality:Fair 2D ECHO LV Diastolic Diameter PLAX 4.2 cm 4.2 - 5.9 / 3.9 - 5.3 cm LV Systolic Diameter PLAX 2.9 cm IVS Diastolic Thickness 0.8 cm 0.6 - 1.0 / 0.6 - 0.9 cm LVPW Diastolic Thickness 0.8 cm 0.6 - 1.0 / 0.6 - 0.9 cm LV Relative Wall Thickness 0.4 LVOT Diameter 1.7 cm Aortic Root Diameter 2.6 cm LA Systolic Diameter LX 3.4 cm 3.0 - 4.0 / 2.7 - 3.8 cm M-MODE AV Cusp Separation MM 1.9 cm DOPPLER Mitral E Point Velocity 90.3 cm/s Mitral A Point Velocity 43.9 cm/s Mitral E to A Ratio 2.1 LV E' Lateral Velocity 23.3 cm/s Mitral E to LV E' Lateral Ratio 3.9 LV E' Septal Velocity 15.4 cm/s Mitral E to LV E' Septal Ratio 5.9 TR Peak Velocity 235.0 cm/s TR Peak Gradient 22.1 mmHg Right Atrial Pressure 10.0 mmHg Pulmonary Artery Systolic Pressu 32.1 mmHg Right Ventricular Systolic Press 32.1 mmHg PV Peak Velocity 136.5 cm/s PV Peak Gradient 7.5 mmHg FINDINGS LEFT VENTRICLE Normal left ventricular size. Wall thickness is normal. The left ventricular systolic function is normal with an estimated ejection fraction in the range of 60-65%. RIGHT VENTRICLE Normal right ventricular size and systolic function. LEFT ATRIUM The left atrial size is normal. RIGHT ATRIUM The right atrial size is normal. ATRIAL SEPTUM Normal atrial septal thickness without atrial level shunting by limited color doppler interrogation. AORTA The aortic root and proximal ascending aorta are normal in size on limited imaging. MITRAL VALVE Trace mitral valve regurgitation. AORTIC VALVE Trileaflet aortic valve. No aortic valve stenosis or regurgitation. TRICUSPID VALVE There is trace tricuspid valve regurgitation. PULMONARY VALVE Mild pulmonary valve regurgitation. VESSELS The inferior vena cava is normal in size. PERICARDIUM No pericardial effusion. Joseph Mcdaniels MD, FACC (Electronically Signed) Final Date:26 October 2018 10:54
--- NOTE | 2018-10-26 11:52 | P.HPIM ---
History of Present Illness Primary Care Physician: No Primary Care Physician Chief Complaint: Headache History of Present Illness: 23-year-old female without any significant past medical history who presented to the ED for evaluation of intermittent headaches in the past 10 days and mostly on the left side of the head associated with blurry vision on the left as well as temporary visual loss. Patient denies any trauma. Head CT in the ED was unremarkable however brain MRI was positive for scattered periventricular deep white matter track area of an increase in T2 FLAIR signal possibly representing a demyelinating process. He was also acute or subacute focal area of diffusion restriction in the anterior horn on the left lateral ventricle. Neurology was consulted and patient was seen this morning. Denies any chest pain or shortness of breath. Inpatient Certification Inpatient Certification: I certify that the inpatient services were ordered in accordance with Medicare regulations governing the order. This includes certification that hospital inpatient services are reasonable and necessary and in the case of services not specified as inpatient-only under 42 CFR 419.22(n), that they are appropriately provided as inpatient services in accordance to with the 2-midnight benchmark under 43 CFR 412.3(e) Estimated Total Length of Stay (Days): 3 Plans for Post Hospital Care: Home Review of Systems Review of Systems: all other systems reviewed are negative PMFSH Family History Family History Other Hypertension Social History Social History Substance History: No History of Abuse Second Hand Smoke Exposure: No Smoking Status: Never smoker How Often Do You Have a Drink Containing Alcohol: Never Recent Travel in [facility] within the Last 8 Weeks: No Recent Out of Country Travel within the Last 8 Weeks: No Immunization History Tetanus Immunization: <5 Years Hx Influenza Vaccine This Season: No Medications and Allergies Allergies Allergy/AdvReac Type Severity Reaction Status Date / Time ondansetron Allergy Severe Rash, hives Verified 09/11/18 16:50 penicillin G Allergy Severe Hives Verified 09/11/18 16:50 Home Medications Medication Instructions Recorded Confirmed Type No Known Home Medications 09/11/18 10/25/18 History Active Medications: Active Medications Dextrose (D50w Vial) 50 ml IV.PUSH UNSCH PRN PRN Reason: per Hypoglycemic Protocol Famotidine (Pepcid) 20 mg PO BID [facility] Glucagon (Glucagon Inj) 1 mg OTHER UNSCH PRN PRN Reason: per Hypoglycemic Protocol Sodium Chloride (Ns Inj) 1,000 mls @ 70 mls/hr IV.CONT .[id number] [facility] Last Admin: 10/26/18 04:50 Dose: 70 mls/hr Methylprednisolone Sodium Succinate 250 mg/ Sodium Chloride 104 mls @ 200 mls/ hr IV.SIG Q6H [facility] Insulin Aspart (Novolog Insulin Correctional Sugar Inj) 0 unit SQ ACHS PRN; Protocol PRN Reason: Per Protocol Sodium Chloride (Ns Flush) 2 ml IV.FLUSH PRN PRN PRN Reason: FLUSH AFTER USING IV ACCESS Physical Exam Vital signs: Vital Signs 10/25/18 17:37 10/25/18 22:21 10/25/18 22:27 Temperature 98.4 F Pulse Rate 60 76 Respiratory Rate 16 Blood Pressure 120/62 115/59 L Pulse Oximetry 99 98 10/26/18 01:10 10/26/18 02:30 10/26/18 03:30 Temperature Pulse Rate 60 60 63 Respiratory Rate 18 18 18 Blood Pressure 105/63 102/51 L 113/68 Pulse Oximetry 99 98 97 10/26/18 04:00 10/26/18 04:30 10/26/18 05:15 Temperature Pulse Rate 60 58 L 75 Respiratory Rate 18 Blood Pressure 113/68 Pulse Oximetry 10/26/18 05:18 10/26/18 07:00 10/26/18 08:00 Temperature 98.2 F Pulse Rate 75 74 68 Respiratory Rate 13 16 Blood Pressure 111/61 102/59 L Pulse Oximetry 10/26/18 09:00 Temperature Pulse Rate 54 L Respiratory Rate 14 Blood Pressure 105/61 Pulse Oximetry Intake & Output 10/25/18 10/26/18 10/26/18 18:59 06:59 18:59 Intake Total 1000 / 1000 Balance 1000 / 1000 Weight 61 kg 63 kg 60.781 kg Intake: IV 1000 / 1000 NS Inj 1,000 ML @ Wide Open IV. 1000 / 1000 SIG BOLUS ONE Rx#:[id number] Oral 0 / 0 Other: Weight On Admission 63 kg Narrative: GENERAL: NAD SKIN: Warm and dry. HEAD: Atraumatic. Normocephalic. EYES: Pupils equal and round. No scleral icterus. No injection or drainage. ENT: No nasal bleeding or discharge. Mucous membranes pink and moist. NECK: Trachea midline. No JVD. CARDIOVASCULAR: Regular rate and rhythm. RESPIRATORY: No accessory muscle use. Clear to auscultation. Breath sounds equal bilaterally. GASTROINTESTINAL: Abdomen soft, non-tender, nondistended. Hepatic and splenic margins not palpable. MUSCULOSKELETAL: Extremities without clubbing, cyanosis, or edema. No obvious deformities. NEUROLOGICAL: Awake and alert. No obvious cranial nerve deficits. Motor grossly within normal limits. Five out of 5 muscle strength in the arms and legs. Normal speech. PSYCHIATRIC: Appropriate mood and affect; insight and judgment normal. Detailed Eye Exam Visual acuity: Visual Acuity Visual Acuity Uncorrected [ 20/20 Left] Visual Acuity Uncorrected [ 20/15 Bilateral] Visual Acuity Corrected [Right 20/20 ] Results Labs CBC & Chem 7: 10/25/18 20:45 10/25/18 20:[address] 10/25/18 20:22 CONCLUSION: No intracranial abnormality. . . Head CTA 10/25/18 20:26 CONCLUSION: Negative CTA of the head. . . Neck CTA 10/25/18 20:26 CONCLUSION: 1. Motion artifact. No definite carotid stenosis. Head MRI 10/26/18 23:24 CONCLUSION: 1. Scattered periventricular and deep white matter tract areas of increased T2 FLAIR signal intensity are more than expected for the patient's stated chronologic age could represent a demyelinating process such as MS or chronic hypertension. Largest lesion measures 1 cm in diameter in the central right ochoa radiata. No areas of enhancement to suggest an active demyelinating plaque, however. 2. Focal area of true diffusion restriction near the apex of the anterior horn of the left lateral ventricle characteristic of a small acute or subacute lacunar type infarct. Head/Brain Mag Res Venography 10/26/18 23:24 CONCLUSION: Negative MRV Brain with and without contrast. Caprini VTE Risk Assessment Caprini VTE Risk Assessment: No/Low Risk (score <= 1) Caprini Risk Assessment Model: Point Value = 1 Point Value = 2 Point Value = 3 Point Value = 5 Age 41-60 Minor surgery BMI > 25 kg/m2 Swollen legs Varicose veins or History of unexplained or recurrent spontaneous Oral contraceptives or hormone replacement Sepsis (< 1 month) Serious lung disease, including pneumonia (< 1 month) Abnormal pulmonary function Acute myocardial infarction Congestive heart failure (< 1 month) History of inflammatory bowel disease Medical patient at bed rest Age 61-74 Arthroscopic surgery Major open surgery (> 45 min) Laparoscopic surgery (> 45 min) Malignancy Confined to bed (> 72 hours) Immobilizing plaster cast Central venous access Age >= 75 History of VTE Family history of VTE Factor V Leiden Prothrombin [id number] Lupus anticoagulant Anticardiolipin antibodies Elevated serum homocysteine Heparin-induced thrombocytopenia Other congenital or acquired thrombophilia Stroke (< 1 month) Elective arthroplasty Hip, pelvis, or leg fracture Acute spinal cord injury (< 1 month) Prophylaxis Regimen: Total Risk Factor Score Risk Level Prophylaxis Regimen 0-1 Low Early ambulation 2 Moderate Order ONE of the following: *Sequential Compression Device (SCD) *Heparin 5000 units SQ BID 3-4 Higher Order ONE of the following medications: *Heparin 5000 units SQ TID *Enoxaparin/Lovenox 40 mg SQ daily (WT < 150 kg, CrCl > 30 mL/min) *Enoxaparin/Lovenox 30 mg SQ daily (WT < 150 kg, CrCl > 10-29 mL/min) *Enoxaparin/Lovenox 30 mg SQ BID (WT < 150 kg, CrCl > 30 mL/min) AND/OR *Sequential Compression Device (SCD) 5 or more Highest Order ONE of the following medications: *Heparin 5000 units SQ TID (Preferred with Epidurals) *Enoxaparin/Lovenox 40 mg SQ daily (WT < 150 kg, CrCl > 30 mL/min) *Enoxaparin/Lovenox 30 mg SQ daily (WT < 150 kg, CrCl > 10-29 mL/min) *Enoxaparin/Lovenox 30 mg SQ BID (WT < 150 kg, CrCl > 30 mL/min) AND *Sequential Compression Device (SCD) Assessment and Plan Plan 23-year-old female with Lacunar Infarct CT noted and reviewed by me without any significant findings Brain MRI with and reviewed by me with finding suggestive of lacunar infarct Brain MRA unremarkable Appreciate input from neurology Start aspirin and check lipid profile Questionable finding of demyelinating disease on brain MRI Optic neuritis Headache Lumbar puncture pending Repeat brain MRI Currently on Solu-Medrol 250 mg IV every 6 hours times 3 days for probable optic neuritis Hypercoagulable panel pending Appreciate input from neurology DVT prophylaxis: SCDs H&P: Quality VTE Deep Vein Thrombosis/Pulmonary Embolism Present on Admission: No
[2018-10-26] MEDS: MethylPREDNISolone Sod Suc Inj 250 MG in Sodium Chlor 0.9% Inj 100 ML IV.SIG SCH ×3 (13:01→23:28)
--- NOTE | 2018-10-26 14:18 | IR ---
EXAM DATE: 10/26/2018 2:01 PM EST AGE/SEX: 23 years / Female INDICATIONS: Patient with headache for 10 days. she has vision change. CLINICAL DATA: This is the patient's initial encounter. Patient reports that signs and symptoms have been present for 2 weeks and indicates a pain score of 7/10. MEDICAL/SURGICAL HISTORY: . headaches. None. COMPARISON: No prior exams available for comparison. FLUORO TIME (min): 1.36 IMAGE SERIES: 1 RADIATION DOSE: 92 mGy CAK ACCESS SITE: L2-3 LUMBAR PUNCTURE TIME: 1328 hours OPENING PRESSURE: 15 -16 cm of water not requested FLUID: Total volume of 11 cc of clear fluid was removed. Fluid was sent to lab for ordered studies. ; . . PROCEDURE: 1. Fluoroscopic guided lumbar puncture. The risks, benefits and alternatives to the procedure were explained and verbal and written consent w as obtained. The site was prepped in sterile fashion. Full sterile technique was used, including ca p, mask, sterile gloves and gown and a large sterile sheet. Hand hygiene and 2% chlorhexidine and/or betadine/alcohol prep was utilized per protocol for cutaneous antisepsis. The skin and subcutaneous tissues were infiltrated with local anesthetic solution. With fluoroscopic guidance the lumbar thecal sac was punctured at the level above. The fluid describ ed above was removed without difficulty. The patient tolerated the procedure well and there were no complications. CONCLUSION: Uncomplicated fluoroscopically guided lumbar puncture. Electronically signed by: Nguyễn Mares MD Board Certified Radiologist 10/26/2018 2:17 PM EST
[2018-10-26 14:21] LABS: RBC on Tube 4 0 /mm3
[2018-10-26 14:42] LABS: Lymphocytes, CSF 100 %; Neutrophils,CSF 0 %
[2018-10-26 16:20] LABS: Total Protein,CSF 35.1 mg/dL (15.0-45.0)
[2018-10-26] MEDS: Famotidine 20 MG Tablet PO SCH (21:47)
--- NOTE | 2018-10-26 22:41 | ECG ---
Date Performed: 10/26/2018 Time Performed: 04:26:19 PTAGE: 23 years EKG: SINUS BRADYCARDIA WITH MARKED SINUS ARRHYTHMIA NONSPECIFIC T-WAVE ABNORMALITY BORDERLINE EC G PREVIOUS TRACING : 10/26/2018 04.12 DOCTOR: Randal Cottrell Interpretating Date/Time 10/26/2018 22:40:09
[2018-10-27] MEDS: MethylPREDNISolone Sod Suc Inj 250 MG in Sodium Chlor 0.9% Inj 100 ML IV.SIG SCH ×3 (05:41→17:50)
[2018-10-27 07:18] LABS: Chol/HDL Ratio 3.28 Ratio; HDL Cholesterol 52.4 mg/dL (40.0-60.0)
[2018-10-27] MEDS: Sod Chloride 0.9% Inj 1,000 ML IV.CONT SCH (09:16)
[2018-10-27] MEDS: Famotidine 20 MG Tablet PO SCH ×2 (09:16→20:57)
[2018-10-27] MEDS ORDERED: Acetaminophen 325 MG Tablet PO PRN (11:46)
--- NOTE | 2018-10-27 11:46 | P.PNIM ---
Subjective Interval history: Follow-up headache/lacunar infarct/probable multiple sclerosis October 27, 2018patient seen and examined, complains of headaches otherwise stable denies any nausea vomiting. No significant visual impairments noted. Mother by the bedside. Physical Exam Vital signs: Vital Signs 10/26/18 12:01 10/26/18 12:02 10/26/18 13:00 Temperature 97.9 F Pulse Rate 64 56 L 92 H Respiratory Rate 20 21 17 Blood Pressure 117/73 123/62 Pulse Oximetry 10/26/18 13:03 10/26/18 13:49 10/26/18 14:00 Temperature 97.9 F Pulse Rate 96 H 62 Respiratory Rate 19 16 Blood Pressure 120/64 Pulse Oximetry 10/26/18 14:41 10/26/18 15:00 10/26/18 16:00 Temperature Pulse Rate 68 64 80 Respiratory Rate 20 16 21 Blood Pressure Pulse Oximetry 10/26/18 17:00 10/26/18 19:39 10/26/18 20:00 Temperature 99.1 F 98.2 F Pulse Rate 86 83 80 Respiratory Rate 19 16 Blood Pressure 133/73 Pulse Oximetry 97 10/27/18 00:00 10/27/18 04:00 10/27/18 08:00 Temperature 97.3 F L 97.6 F 99.1 F Pulse Rate 60 79 78 Respiratory Rate 16 16 Blood Pressure 110/64 110/73 Pulse Oximetry 97 97 Intake & Output 10/26/18 10/27/18 10/27/18 18:59 06:59 18:59 Intake Total 794 / 794 612 / 612 1480 / 1480 Balance 794 / 794 612 / 612 1480 / 1480 Weight 60.781 kg 65.2 kg Intake: IV 104 / 104 612 / 612 1000 / 1000 NS Inj 1,000 ML @ 70 mls/hr IV. 300 / 300 1000 / 1000 CONT .[id number] [facility] Rx#: [id number] SoluMEDROL Inj 250 MG In NS Inj 104 / 104 312 / 312 100 ML @ 200 mls/hr IV.SIG Q6H [facility] Rx#:[id number] Oral 690 / 690 480 / 480 Other: # Voids 4 3 Narrative: GENERAL: NAD SKIN: Warm and dry. HEAD: Atraumatic. Normocephalic. EYES: Pupils equal and round. No scleral icterus. No injection or drainage. ENT: No nasal bleeding or discharge. Mucous membranes pink and moist. NECK: Trachea midline. No JVD. CARDIOVASCULAR: Regular rate and rhythm. RESPIRATORY: No accessory muscle use. Clear to auscultation. Breath sounds equal bilaterally. GASTROINTESTINAL: Abdomen soft, non-tender, nondistended. Hepatic and splenic margins not palpable. MUSCULOSKELETAL: Extremities without clubbing, cyanosis, or edema. No obvious deformities. NEUROLOGICAL: Awake and alert. No obvious cranial nerve deficits. Motor grossly within normal limits. Five out of 5 muscle strength in the arms and legs. Normal speech. PSYCHIATRIC: Appropriate mood and affect; insight and judgment normal. Detailed Eye Exam Visual acuity: Visual Acuity Visual Acuity Uncorrected [ 20/20 Left] Visual Acuity Uncorrected [ 20/15 Bilateral] Visual Acuity Corrected [Right 20/20 ] Results Labs CBC & Chem 7: 10/25/18 20:45 10/25/18 20:45 Labs: Microbiology 10/26/18 13:57 Lumbar Puncture Gram Stain - Final 10/26/18 13:57 Lumbar Puncture CSF Culture - Preliminary No growth in 24 hours Imaging Imaging: Impressions Lumbar Puncture Fluoroscopy 10/26/18 00:00 CONCLUSION: Uncomplicated fluoroscopically guided lumbar puncture. Assessment and Plan Plan 23-year-old female with Lacunar Infarct CT noted without any significant findings Brain MRI with finding suggestive of lacunar infarct Brain MRA unremarkable Appreciate input from neurology Continue aspirin Probable multiple sclerosis Optic neuritis Headache s/p Lumbar puncture pending culture Repeat brain MRI Currently on Solu-Medrol 250 mg IV every 6 hours times 3 days for probable optic neuritis/MS Hypercoagulable panel pending Appreciate input from neurology Tylenol as needed for headache DVT prophylaxis: SCDs Progress Note: Quality VTE Deep Vein Thrombosis/Pulmonary Embolism Present on Admission: No
[2018-10-27 15:34] LABS: Hemoglobin A1c 5.6 % (4.3-6.0)
[2018-10-28] MEDS: MethylPREDNISolone Sod Suc Inj 250 MG in Sodium Chlor 0.9% Inj 100 ML IV.SIG SCH ×5 (00:13→22:34)
[2018-10-28] MEDS: Famotidine 20 MG Tablet PO SCH ×2 (09:00→22:35)
--- NOTE | 2018-10-28 09:59 | P.PNIM ---
Subjective Interval history: Follow-up probable multiple sclerosis/lacunar infarct/headache October 28, 2018patient seen and examined, reports some improvement of headache and denies any significant left blurry vision. Physical Exam Vital signs: Vital Signs 10/27/18 12:00 10/27/18 16:00 10/27/18 19:58 Temperature 98.3 F 98.3 F 99.1 F Pulse Rate 89 65 57 L Respiratory Rate 22 23 16 Blood Pressure 131/75 127/77 122/68 Pulse Oximetry 96 96 99 10/27/18 20:35 10/28/18 00:00 10/28/18 00:05 Temperature 97.3 F L Pulse Rate 53 L 53 L 48 L Respiratory Rate 20 Blood Pressure 117/66 Pulse Oximetry 99 10/28/18 04:00 10/28/18 08:00 Temperature 97.5 F L 98.1 F Pulse Rate 73 61 Respiratory Rate 20 20 Blood Pressure 128/80 132/66 Pulse Oximetry 99 98 Intake & Output 10/27/18 10/28/18 10/28/18 18:59 06:59 18:59 Intake Total 2648 / 2648 1208 / 1208 240 / 240 Output Total 10 / 10 Balance 2638 / 2638 1208 / 1208 240 / 240 Weight 64 kg Intake: IV 1208 / 1208 1208 / 1208 NS Inj 1,000 ML @ 70 mls/hr IV. 1000 / 1000 1000 / 1000 CONT .[id number] [facility] Rx#: [id number] SoluMEDROL Inj 250 MG In NS Inj 208 / 208 208 / 208 100 ML @ 200 mls/hr IV.SIG Q6H [facility] Rx#:[id number] Oral 1440 / 1440 240 / 240 Output: Urine 10 / 10 Other: # Voids 2 Narrative: GENERAL: NAD SKIN: Warm and dry. HEAD: Atraumatic. Normocephalic. EYES: Pupils equal and round. No scleral icterus. No injection or drainage. ENT: No nasal bleeding or discharge. Mucous membranes pink and moist. NECK: Trachea midline. No JVD. CARDIOVASCULAR: Regular rate and rhythm. RESPIRATORY: No accessory muscle use. Clear to auscultation. Breath sounds equal bilaterally. GASTROINTESTINAL: Abdomen soft, non-tender, nondistended. Hepatic and splenic margins not palpable. MUSCULOSKELETAL: Extremities without clubbing, cyanosis, or edema. No obvious deformities. NEUROLOGICAL: Awake and alert. No obvious cranial nerve deficits. Motor grossly within normal limits. Five out of 5 muscle strength in the arms and legs. Normal speech. PSYCHIATRIC: Appropriate mood and affect; insight and judgment normal. Detailed Eye Exam Visual acuity: Visual Acuity Visual Acuity Uncorrected [ 20/20 Left] Visual Acuity Uncorrected [ 20/15 Bilateral] Visual Acuity Corrected [Right 20/20 ] Results Labs CBC & Chem 7: 10/25/18 20:45 10/25/18 20:45 Labs: Microbiology 10/26/18 13:29 Cerebral Spinal Fluid - Lumbar Puncture Fungal Smear - Final No fungal elements seen 10/26/18 13:57 Lumbar Puncture Gram Stain - Final 10/26/18 13:57 Lumbar Puncture CSF Culture - Preliminary No growth in 24 hours Assessment and Plan Plan 23-year-old female with Lacunar Infarct CT noted without any significant findings Brain MRI with finding suggestive of lacunar infarct Brain MRA unremarkable Appreciate input from neurology Continue aspirin Probable multiple sclerosis Optic neuritis Headache s/p Lumbar puncture pending culture Repeat brain MRI Currently on Solu-Medrol 250 mg IV every 6 hours times 3 days for probable optic neuritis/MS Solu-Medrol therapy to end tonight at 11 PM October 28, 2018 Hypercoagulable panel pending Appreciate input from neurology Tylenol as needed for headache DVT prophylaxis: SCDs Progress Note: Quality VTE Deep Vein Thrombosis/Pulmonary Embolism Present on Admission: No
[2018-10-28] MEDS: Sod Chloride 0.9% Inj 1,000 ML IV.CONT SCH ×2 (14:00)
[2018-10-28 15:53] LABS: Dil Russell Viper Venom Conf ( ND (NEGATIVE); Dil Russell Viper Venom Time M ND (CORRECTED); Lupus Anticoagulant PTT Screen 32 seconds (< OR = 40)
--- NOTE | 2018-10-28 20:20 | P.PNNEU ---
Subjective Subjective Comments: headache is resolved. Vision left eye improved Active Medications: Active Medications Acetaminophen (Tylenol) 650 mg PO Q4H PRN PRN Reason: HEADACHE Last Admin: 10/27/18 12:45 Dose: 650 mg Dextrose (D50w Vial) 50 ml IV.PUSH UNSCH PRN PRN Reason: per Hypoglycemic Protocol Famotidine (Pepcid) 20 mg PO BID [facility] Last Admin: 10/28/18 09:00 Dose: 20 mg Glucagon (Glucagon Inj) 1 mg OTHER UNSCH PRN PRN Reason: per Hypoglycemic Protocol Sodium Chloride (Ns Inj) 1,000 mls @ 70 mls/hr IV.CONT .[id number] [facility] Last Admin: 10/28/18 14:00 Dose: 70 mls/hr Methylprednisolone Sodium Succinate 250 mg/ Sodium Chloride 104 mls @ 200 mls/ hr IV.SIG Q6H [facility] Stop: 10/29/18 11:00 Last Infusion: 10/28/18 17:43 Dose: Infused Insulin Aspart (Novolog Insulin Correctional Sugar Inj) 0 unit SQ ACHS PRN; Protocol PRN Reason: Per Protocol Sodium Chloride (Ns Flush) 2 ml IV.FLUSH PRN PRN PRN Reason: FLUSH AFTER USING IV ACCESS Allergies/Adverse Reactions: Allergies Allergy/AdvReac Type Severity Reaction Status Date / Time ondansetron Allergy Severe Rash, hives Verified 09/11/18 16:50 penicillin G Allergy Severe Hives Verified 09/11/18 16:50 Physical Exam Vital signs: Vital Signs 10/27/18 20:35 10/28/18 00:00 10/28/18 00:05 Temperature 97.3 F L Pulse Rate 53 L 53 L 48 L Respiratory Rate 20 Blood Pressure 117/66 Pulse Oximetry 99 10/28/18 04:00 10/28/18 08:00 10/28/18 12:00 Temperature 97.5 F L 98.1 F 98 F Pulse Rate 73 75 50 L Respiratory Rate 20 20 20 Blood Pressure 128/80 132/66 135/75 Pulse Oximetry 99 98 98 10/28/18 16:00 Temperature 97.9 F Pulse Rate 50 L Respiratory Rate 18 Blood Pressure 141/85 H Pulse Oximetry 100 Intake & Output 10/28/18 10/28/18 10/29/18 06:59 18:59 06:59 Intake Total 1208 / 1208 2168 / 2168 Balance 1208 / 1208 2167 / 2168 Weight 64 kg Intake: IV 1208 / 1208 1208 / 1208 NS Inj 1,000 ML @ 70 mls/hr IV. 1000 / 1000 1000 / 1000 CONT .[id number] [facility] Rx#: [id number] SoluMEDROL Inj 250 MG In NS Inj 208 / 208 208 / 208 100 ML @ 200 mls/hr IV.SIG Q6H [facility] Rx#:[id number] Oral 960 / 960 Other: # Voids 2 2 - Detailed Eye Exam Visual acuity: Visual Acuity Visual Acuity Uncorrected [ 20/20 Left] Visual Acuity Uncorrected [ 20/15 Bilateral] Visual Acuity Corrected [Right 20/20 ] - Routine Neurological Exam alert, speech normal CN intact MOTOR 5/5 BUE Objective Laboratory Results - last 24 hr 10/26/18 10/26/18 10/28/18 10:36 10:36 02:24 Thrombin Time ND Lupus Anticoagulant LA PTT Screen 32 dRVVT Screen 31 LA dRVVT Confirm ND dRVVT Mix ND Hexagonal Phase Confirm ND POC Glucose 170 CASEY Screen Neg 10/28/18 07:54 Thrombin Time Lupus Anticoagulant LA PTT Screen dRVVT Screen LA dRVVT Confirm dRVVT Mix Hexagonal Phase Confirm POC Glucose 156 CASEY Screen Microbiology 10/26/18 13:29 Acid Fast Bacilli Smear - Final Cerebral Spinal Fluid - Lumbar Puncture No acid fast bacilli seen 10/26/18 13:57 Gram Stain - Final Lumbar Puncture CSF Culture - Preliminary No growth in 48 hours 10/26/18 13:29 Fungal Smear - Final Cerebral Spinal Fluid - Lumbar Puncture No fungal elements seen Review/Management - Review/Management Plan: left optic neuritis. ? MS Recommend stop solumedrol tomorrow am. Ok to dc home tomorrow from neuro standpoint . Follow up with me in 2 weeks
[2018-10-29] MEDS: MethylPREDNISolone Sod Suc Inj 250 MG in Sodium Chlor 0.9% Inj 100 ML IV.SIG SCH (05:55)
[2018-10-29] MEDS: Sod Chloride 0.9% Inj 1,000 ML IV.CONT SCH ×2 (05:55→18:55)
[2018-10-29] MEDS: Famotidine 20 MG Tablet PO SCH ×2 (09:03→21:08)
[2018-10-29 09:22] LABS: Baso # (Auto) 0.1 th/mm3 (0.0-0.2); Baso % (Auto) 0.7 % (0.0-2.0); Hematocrit 33.7 % (35.0-46.0); Lymph # (Auto) 0.5 th/mm3 (1.0-4.8); Lymph % (Auto) 4.3 % (9.0-44.0); Mean Corpuscular HGB Conc 32.6 % (32.0-36.0); Mean Corpuscular Hemoglobin 29.6 pg (27.0-34.0); Mean Corpuscular Volume 90.9 fL (80.0-100.0); Mean Platelet Volume 8.5 fL (7.0-11.0); Mono # (Auto) 0.4 th/mm3 (0.0-0.9); Mono % (Auto) 3.3 % (0.0-8.0); Neut # (Auto) 11.1 th/mm3 (1.8-7.7); Neut % (Auto) 91.7 % (16.0-70.0); Platelet Count 258 th/mm3 (150-450); Red Cell Distribution Width 13.4 % (11.6-17.2); White Blood Count 12.1 th/mm3 (4.0-11.0)
[2018-10-29 09:47] LABS: Calcium 8.4 mg/dL (8.5-10.1)
[2018-10-29 09:48] LABS: Albumin 3.3 g/dL (3.4-5.0); Carbon Dioxide 24.8 meq/L (21.0-32.0); Glucose,Random 216 mg/dL (74-106)
[2018-10-29 09:51] LABS: Glomerular Filtration Rate 87 mL/min (>89); Phosphorus 2.7 mg/dL (2.5-4.9)
[2018-10-29 09:52] LABS: Anion Gap 9 meq/L (5-15); Chloride 110 meq/L (98-107); Potassium 3.5 meq/L (3.5-5.1); Sodium 144 meq/L (136-145)
[2018-10-29 09:54] LABS: Alkaline Phosphatase 56 U/L (45-117)
[2018-10-29 09:58] LABS: Alanine Aminotransferase 112 U/L (10-53)
[2018-10-29 10:01] LABS: Blood Urea Nitrogen 11 mg/dL (7-18)
[2018-10-29 10:02] LABS: Aspartate Aminotransferase 57 U/L (15-37)
[2018-10-29 11:32] LABS: Bilirubin,Urine Negative (Negative); Clarity,Urine Clear (Clear); Glucose,Urine (UA) 100 mg/dL (Negative); Leukocyte Esterase,Urine Moderate (Negative); Nitrite,Urine Negative (Negative); Specific Gravity,Urine 1.015 (1.002-1.035); Urobilinogen,Urine 0.2 mg/dL (Less than 2)
[2018-10-29 11:36] LABS: Color,Urine Straw (Yellw/Straw)
[2018-10-29 11:55] LABS: Bacteria,Urine Rare /hpf; Squamous Epithelial Cell,Urine 0-5 /hpf (0-5)
[2018-10-29 11:56] LABS: Trichomonas,Urine Rare /hpf
--- NOTE | 2018-10-29 13:42 | P.PNIM ---
Subjective Interval history: Follow-up left optic neuritislacunar infarct/rule out MS and now sustained bradycardia October 29, 2018patient seen and examined, denies any dizziness or shortness of breath. Reports improvement of loss of vision in the left eye, i.e. blurry vision. Only complains of burning with urination Physical Exam Vital signs: Vital Signs 10/28/18 16:00 10/28/18 20:00 10/28/18 20:25 Temperature 97.9 F 97.7 F Pulse Rate 50 L 40 L 44 L Respiratory Rate 18 22 Blood Pressure 141/85 H 143/69 H Pulse Oximetry 100 96 10/29/18 00:00 10/29/18 04:00 10/29/18 04:01 Temperature 98.4 F 97.8 F Pulse Rate 48 L 44 L 30 L Respiratory Rate 22 20 Blood Pressure 130/74 143/79 H Pulse Oximetry 94 L 96 10/29/18 08:00 10/29/18 09:35 10/29/18 09:37 Temperature 96.8 F L Pulse Rate 41 L 36 L 36 L Respiratory Rate 20 19 Blood Pressure 158/83 H 160/96 H Pulse Oximetry 99 98 10/29/18 10:00 10/29/18 11:28 10/29/18 12:00 Temperature Pulse Rate 38 L 39 L 40 L Respiratory Rate 16 23 Blood Pressure 161/94 H 161/91 H 148/86 H Pulse Oximetry 100 Intake & Output 10/28/18 10/29/18 10/29/18 18:59 06:59 18:59 Intake Total 2168 / 2168 1208 / 1208 0 / 0 Balance 2168 / 2168 1208 / 1208 0 / 0 Weight 64.7 kg Intake: IV 1208 / 1208 1208 / 1208 0 / 0 NS Inj 1,000 ML @ 70 mls/hr IV. 1000 / 1000 1000 / 1000 0 / 0 CONT .[id number] THANH Rx#: [id number] SoluMEDROL Inj 250 MG In NS Inj 208 / 208 208 / 208 100 ML @ 200 mls/hr IV.SIG Q6H THANH Rx#:[id number] Oral 960 / 960 Other: # Voids 2 4 1 Date of Last Bowel Movement 10/28/18 Narrative: GENERAL: NAD SKIN: Warm and dry. HEAD: Atraumatic. Normocephalic. EYES: Pupils equal and round. No scleral icterus. No injection or drainage. ENT: No nasal bleeding or discharge. Mucous membranes pink and moist. NECK: Trachea midline. No JVD. CARDIOVASCULAR: Regular rate and rhythm. RESPIRATORY: No accessory muscle use. Clear to auscultation. Breath sounds equal bilaterally. GASTROINTESTINAL: Abdomen soft, non-tender, nondistended. Hepatic and splenic margins not palpable. MUSCULOSKELETAL: Extremities without clubbing, cyanosis, or edema. No obvious deformities. NEUROLOGICAL: Awake and alert. No obvious cranial nerve deficits. Motor grossly within normal limits. Five out of 5 muscle strength in the arms and legs. Normal speech. PSYCHIATRIC: Appropriate mood and affect; insight and judgment normal. Detailed Eye Exam Visual acuity: Visual Acuity Visual Acuity Uncorrected [ 20/20 Left] Visual Acuity Uncorrected [ 20/15 Bilateral] Visual Acuity Corrected [Right 20/20 ] Results Labs CBC & Chem 7: 10/29/18 09:16 10/29/18 09:16 Labs: Microbiology 10/26/18 13:57 Lumbar Puncture Gram Stain - Final 10/26/18 13:57 Lumbar Puncture CSF Culture - Final No growth in 72 hours 10/26/18 13:29 Cerebral Spinal Fluid - Lumbar Puncture Acid Fast Bacilli Smear - Final No acid fast bacilli seen Assessment and Plan Plan 23-year-old female with Lacunar Infarct CT noted without any significant findings Brain MRI with finding suggestive of lacunar infarct Brain MRA unremarkable Appreciate input from neurology Continue aspirin Probable multiple sclerosis? Left optic neuritis Headache s/p Lumbar puncture pending culture Repeat brain MRI Completed therapy with Solu-Medrol 250 mg IV every 6 hours times 3 days last night Hypercoagulable panel pending Appreciate input from neurology Tylenol as needed for headache Appreciate input from neurology Sustained bradycardia 2D echo on October 26, 2018 report noted Patient was recently treated with IV Solu-Medrol and completed therapy yesterday October 28, 2018 Consult cardiology for further evaluation as patient with elevated BP along with bradycardia Continue with telemetry monitoring Dysuria Abnormal UA pending urine culture Continuing gentle IV fluid hydration DVT prophylaxis: SCDs Progress Note: Quality VTE Deep Vein Thrombosis/Pulmonary Embolism Present on Admission: No
--- NOTE | 2018-10-29 18:05 | MB ---
cc: Darian Garcia MD DATE: 10/29/2018 REASON FOR CONSULTATION: Bradycardia. HISTORY OF PRESENT ILLNESS: The patient is a pleasant 23-year-old woman with no cardiac conditions who presented with left visual disturbance and a brain MRI was concerning for multiple sclerosis. I have been consulted because she has had fairly low heart rates as low as the upper 30s, but mostly in the 40s and low 50s. The patient is completely asymptomatic from a cardiac standpoint. She denies any chest pain, shortness of breath, lightheadedness, dizziness, fatigue or syncope. The patient said that she can exert herself normally and does not feel limited. PAST MEDICAL HISTORY: None prior to this admission. CURRENT MEDICATIONS: Pepcid. ALLERGIES: 1. ONDANSETRON. 2. PENICILLIN. PHYSICAL EXAMINATION: VITAL SIGNS: Afebrile, pulse 42, respiratory rate 18, BP 148/86, saturating 100 on room air. GENERAL: Pleasant, -[place] woman in no distress. NECK: No JVD. LUNGS: Clear to auscultation bilaterally. CARDIOVASCULAR: Bradycardic and regular. No murmurs appreciated. ABDOMEN: Benign. EXTREMITIES: No edema. LABORATORY DATA: Sodium 144, potassium 3.5, chloride 110, bicarbonate 24.8, BUN 11, creatinine 0.95, glucose 216 (Solu-Medrol was given). INR is 1.1. White count 12.1, hematocrit 33.7, platelets 258. EKG shows sinus bradycardia without any acute ST or T-wave changes. IMPRESSION: Asymptomatic sinus bradycardia. The patient does have marked sinus bradycardia, but she is completely asymptomatic. Potentially this is due to her neurologic condition. Regardless, she has no symptoms and thus there is not an indication for a pacemaker in an asymptomatic person with bradycardia, particularly of this age. I would ask that she get good physical therapy evaluation before she can make sure she can ambulate and feel well hopefully with some elevation of heart rate during this activity. If she can ambulate without symptoms, she could be discharged from a cardiac standpoint. Thank you again for the opportunity to participate in this patient's care. MD CARLOS A Mars/shahid , 05:08 PM , 05:14 PM
--- NOTE | 2018-10-29 18:12 | ECG ---
Date Performed: 10/29/2018 Time Performed: 09:12:48 PTAGE: 23 years EKG: SINUS BRADYCARDIA ABNORMAL RHYTHM ECG PREVIOUS TRACING : 10/26/2018 04.26 Compared to previous tracing, rate slower DOCTOR: Joseph Mcdaniels Interpretating Date/Time 10/29/2018 18:11:42
[2018-10-29 20:24] VITALS: O2SAT 99
[2018-10-29] MEDS: Ciprofloxacin 500 MG Tablet PO SCH (21:08)
[2018-10-30] MEDS: Ciprofloxacin 500 MG Tablet PO SCH (08:44)
[2018-10-30] MEDS: Famotidine 20 MG Tablet PO SCH (08:44)
[2018-10-30 09:39] VITALS: BP 130/80; PULSE 46; RESP 20; TEMP 97
--- NOTE | 2018-10-30 09:50 | P.PNIM ---
Subjective Interval history: Follow-up left optic neuritis/lacunar infarct/asymptomatic bradycardia/UTI October 30, 2018patient seen and examined, she denies any shortness of breath , chest pain or dizziness when up and ambulated. She reports some improvement of vision in the left eye. Looking forward to go home. She was seen by cardiology yesterday. Physical Exam Vital signs: Vital Signs 10/29/18 10:00 10/29/18 11:28 10/29/18 12:00 Temperature Pulse Rate 38 L 39 L 40 L Respiratory Rate 16 23 Blood Pressure 161/94 H 161/91 H 148/86 H Pulse Oximetry 100 10/29/18 14:00 10/29/18 16:00 10/29/18 17:32 Temperature 99.1 F Pulse Rate 42 L 41 L 48 L Respiratory Rate 21 Blood Pressure 145/80 H Pulse Oximetry 99 10/29/18 18:00 10/29/18 19:18 10/29/18 20:00 Temperature 98.7 F Pulse Rate 53 L 42 L 40 L Respiratory Rate 20 24 Blood Pressure 156/95 H 145/80 H Pulse Oximetry 100 99 10/29/18 22:00 10/30/18 00:00 10/30/18 02:00 Temperature Pulse Rate 38 L 41 L 37 L Respiratory Rate 11 L Blood Pressure Pulse Oximetry 99 10/30/18 04:00 10/30/18 06:00 10/30/18 08:00 Temperature 96.7 F L Pulse Rate 41 L 40 L 40 L Respiratory Rate 14 17 Blood Pressure 140/90 Pulse Oximetry 99 10/30/18 08:42 10/30/18 09:00 Temperature 97 F L Pulse Rate 48 L 46 L Respiratory Rate 20 20 Blood Pressure 130/80 Pulse Oximetry Intake & Output 10/29/18 10/30/18 10/30/18 18:59 06:59 18:59 Intake Total 625 / 625 855 / 855 Balance 625 / 625 855 / 855 Weight 63 kg Intake: IV 625 / 625 375 / 375 NS Inj 1,000 ML @ 70 mls/hr IV. 625 / 625 375 / 375 CONT .[id number] THANH Rx#: [id number] Oral 480 / 480 Other: # Voids 3 4 Date of Last Bowel Movement 10/29/18 10/29/18 # Bowel Movements 0 Narrative: GENERAL: NAD SKIN: Warm and dry. HEAD: Atraumatic. Normocephalic. EYES: Pupils equal and round. No scleral icterus. No injection or drainage. ENT: No nasal bleeding or discharge. Mucous membranes pink and moist. NECK: Trachea midline. No JVD. CARDIOVASCULAR: Regular rate and rhythm. RESPIRATORY: No accessory muscle use. Clear to auscultation. Breath sounds equal bilaterally. GASTROINTESTINAL: Abdomen soft, non-tender, nondistended. Hepatic and splenic margins not palpable. MUSCULOSKELETAL: Extremities without clubbing, cyanosis, or edema. No obvious deformities. NEUROLOGICAL: Awake and alert. No obvious cranial nerve deficits. Motor grossly within normal limits. Five out of 5 muscle strength in the arms and legs. Normal speech. PSYCHIATRIC: Appropriate mood and affect; insight and judgment normal. Detailed Eye Exam Visual acuity: Visual Acuity Visual Acuity Uncorrected [ 20/20 Left] Visual Acuity Uncorrected [ 20/15 Bilateral] Visual Acuity Corrected [Right 20/20 ] Results Labs CBC & Chem 7: 10/29/18 09:16 10/29/18 09:16 Labs: Microbiology 10/26/18 13:57 Lumbar Puncture Gram Stain - Final 10/26/18 13:57 Lumbar Puncture CSF Culture - Final No growth in 72 hours Assessment and Plan Plan 23-year-old female with Lacunar Infarct CT noted without any significant findings Brain MRI with finding suggestive of lacunar infarct Brain MRA unremarkable Appreciate input from neurology Continue aspirin Probable multiple sclerosis? Left optic neuritis Headache s/p Lumbar puncture pending culture Repeat brain MRI Completed therapy with Solu-Medrol 250 mg IV every 6 hours times 3 days, on October 28, 2018 Hypercoagulable panel pending Appreciate input from neurology Tylenol as needed for headache Appreciate input from neurology Asymptomatic sustained bradycardia 2D echo on October 26, 2018 report noted Appreciate input from cardiology, recommended conservative management as patient currently asymptomatic Continue with telemetry monitoring UTI Currently on Cipro 500 mg p.o. twice daily times 3 days Urine culture pending DVT prophylaxis: SCDs Progress Note: Quality VTE Deep Vein Thrombosis/Pulmonary Embolism Present on Admission: No
--- NOTE | 2018-10-30 09:55 | P.DS ---
DS: Providers Date of admission: 10/26/18 02:35 Primary care physician: No Primary Care Physician Consults: 10/26/18 02:36 Consult to Neurology Routine Consulting Provider: Basil Preciado Reason for Consultation: discussed with Dr Bates Notified:: Service Spoke with:: rajesh Date Notified:: 10/26/18 Time Notified:: 02:52 Ordering Provider: ISABEL 10/29/18 13:33 Consult to Cardiology Routine Consulting Provider: Darian Garcia Does the patient have a Publishing Director who follows them?: No Preferred Drying Rack Changer:: Physiotherapy Aide Physician Reason for Consultation: 23-year-old female admitted secondary to lacunar infarct/left optic neuritis/rule out MS post treatment with Solu-Medrol times 3 days and now with severe sustained bradycardia, please evaluate and advise for therapy Notified:: Service Spoke with:: JOSS Date Notified:: 10/29/18 Time Notified:: 13:48 Ordering Provider: KRISTEL Brief History from admission: 23-year-old female without any significant past medical history who presented to the ED for evaluation of intermittent headaches in the past 10 days and mostly on the left side of the head associated with blurry vision on the left as well as temporary visual loss. Patient denies any trauma. Head CT in the ED was unremarkable however brain MRI was positive for scattered periventricular deep white matter track area of an increase in T2 FLAIR signal possibly representing a demyelinating process. He was also acute or subacute focal area of diffusion restriction in the anterior horn on the left lateral ventricle. Neurology was consulted and patient was seen this morning. Denies any chest pain or shortness of breath. DS: Summary Patient admitted and diagnosed with lacunar infarct, left optic neuritis and a questionable multiple sclerosis rule out for which hypercoagulable studies were obtained and neurology consulted. Patient was started on IV Solu-Medrol 250 mg every 6 hours times 3 days which she completed with some improvement of vision in her left eye prior to discharge. During her hospitalization stay, patient was noted to be bradycardic however asymptomatic. Cardiology was consulted and was advised from conservative management. Patient was started on p.o. Cipro 500 mg twice daily times 3 days for UTI. Vitals were monitored. Prior to discharge, patient conditions improved. She will follow outpatient with neurology in 2 weeks. Time Spent with Patient Total time spent providing and/or coordinating discharge services: Less than 30 minutes Quality: VTE Deep Vein Thrombosis/Pulmonary Embolism Present on Admission: No Exam Narrative Exam Narrative: GENERAL: NAD SKIN: Warm and dry. HEAD: Atraumatic. Normocephalic. EYES: Pupils equal and round. No scleral icterus. No injection or drainage. ENT: No nasal bleeding or discharge. Mucous membranes pink and moist. NECK: Trachea midline. No JVD. CARDIOVASCULAR: Regular rate and rhythm. RESPIRATORY: No accessory muscle use. Clear to auscultation. Breath sounds equal bilaterally. GASTROINTESTINAL: Abdomen soft, non-tender, nondistended. Hepatic and splenic margins not palpable. MUSCULOSKELETAL: Extremities without clubbing, cyanosis, or edema. No obvious deformities. NEUROLOGICAL: Awake and alert. No obvious cranial nerve deficits. Motor grossly within normal limits. Five out of 5 muscle strength in the arms and legs. Normal speech. PSYCHIATRIC: Appropriate mood and affect; insight and judgment normal. Results Procedures completed during hospitalization: None Labs on day of discharge: Labs from last 24 hours 10/30/18 10/29/18 10/29/18 08:17 17:15 11:54 BUN POC Glucose 97 174 171 Total Bilirubin AST ALT Alkaline Phosphatase Total Protein TSH Ur Collection Type Urine Color Urine Clarity Urine pH Ur Specific [place] Urine Protein Urine Glucose (UA) Urine Ketones Urine Occult Blood Urine Nitrate Urine Bilirubin Urine Urobilinogen Ur Leukocyte Esterase Urine WBC Urine WBC Clumps Ur Squamous Epith Cells Urine Bacteria Urine Trichomonas Micro UA Comment Ur Microscopic Review Urine Culture Comments Ser Oligoclonal Bands CSF Oligoclonal Bands CSF Olig Protein Interp CSF Lyme Disease DNA Prothrombin [id number] Mut 10/29/18 10/29/18 10/29/18 11:15 09:16 09:16 BUN 11 POC Glucose Total Bilirubin 0.3 AST 57 H ALT 112 H Alkaline Phosphatase 56 Total Protein 6.0 L TSH 0.264 L Ur Collection Type Clean catch Urine Color Straw Urine Clarity Clear Urine pH 7.0 Ur Specific [place] 1.015 Urine Protein Negative Urine Glucose (UA) 100 H Urine Ketones Negative Urine Occult Blood Trace Urine Nitrate Negative Urine Bilirubin Negative Urine Urobilinogen 0.2 Ur Leukocyte Esterase Moderate H Urine WBC 6-8 H Urine WBC Clumps Occasional H Ur Squamous Epith Cells 0-5 Urine Bacteria Rare H Urine Trichomonas Rare H Micro UA Comment Culture indicated Ur Microscopic Review Microscopic reviewed Urine Culture Comments Culture indicated Ser Oligoclonal Bands CSF Oligoclonal Bands CSF Olig Protein Interp CSF Lyme Disease DNA Prothrombin [id number] Mut 10/26/18 10/26/18 13:29 10:36 BUN POC Glucose Total Bilirubin AST ALT Alkaline Phosphatase Total Protein TSH Ur Collection Type Urine Color Urine Clarity Urine pH Ur Specific [place] Urine Protein Urine Glucose (UA) Urine Ketones Urine Occult Blood Urine Nitrate Urine Bilirubin Urine Urobilinogen Ur Leukocyte Esterase Urine WBC Urine WBC Clumps Ur Squamous Epith Cells Urine Bacteria Urine Trichomonas Micro UA Comment Ur Microscopic Review Urine Culture Comments Ser Oligoclonal Bands 0 CSF Oligoclonal Bands 9 CSF Olig Protein Interp 9 CSF Lyme Disease DNA Not detected Prothrombin [id number] Mut Impressions ITS Impressions Head CT 10/25/18 20:22 CONCLUSION: No intracranial abnormality. . . Head CTA 10/25/18 20:26 CONCLUSION: Negative CTA of the head. . . Neck CTA 10/25/18 20:26 CONCLUSION: 1. Motion artifact. No definite carotid stenosis. Lumbar Puncture Fluoroscopy 10/26/18 00:00 CONCLUSION: Uncomplicated fluoroscopically guided lumbar puncture. Head MRI 10/26/18 23:24 CONCLUSION: 1. Scattered periventricular and deep white matter tract areas of increased T2 FLAIR signal intensity are more than expected for the patient's stated chronologic age could represent a demyelinating process such as MS or chronic hypertension. Largest lesion measures 1 cm in diameter in the central right ochoa radiata. No areas of enhancement to suggest an active demyelinating plaque, however. 2. Focal area of true diffusion restriction near the apex of the anterior horn of the left lateral ventricle characteristic of a small acute or subacute lacunar type infarct. Head/Brain Mag Res Venography 10/26/18 23:24 CONCLUSION: Negative MRV Brain with and without contrast. Discharge Plan Discharge Disposition Patient Disposition: 01 Discharge Home Discharge Condition Condition: Stable Discharge Order Discharge Orders: Discharge Order (Routine); Ordered 10/30/18 Ordered By: Jimi Arroyo Physicians Team ED Provider: Malathi Diego ED Midlevel Provider: Jackelin Love Primary Care Provider: Primary Care Will,Adelia Attending Provider: Jimi Arroyo Other Providers: Basil Preciado ; Darian Garcia Rxs /Orders / Referrals /Forms Prescriptions: New ciprofloxacin HCl 500 mg Tablet 500 mg PO Q12HR Qty: 5 RF: 0 No Action No Known Home Medications RF: 0 Referrals: Basil Preciado MD, PhD [Physician] - 11/14/18 12:00 am Primary Care Adelia Solis [Primary Care Provider] - See Instructions Stand Alone Forms: Work Release/Restrictions Discharge Instructions Patient Printed Instructions: Ciprofloxacin (By mouth), Urinary Tract Infection in Women (DC) Discharge Interventions Interventions: Discharge Planning - Case Management Last Done: 10/26/18 09:45 Status ED Status: Left Department
[2018-10-31 12:38] LABS: Factor V Leiden Mutation Negative (Negative); Protein C Antigen 60 % (70-150); Protein S Antigen Free 61 % (50 - 160)
== END 2018-10-30 11:35 | disposition home or self-care (01) | DRG 65 ==
LOC: PHED 17:24 → PHEDA 10-26 02:35 → PHICU 10-26 05:16 → PH3 10-27 20:23 → PHICU 10-29 09:33
PROVIDERS: ADMIT Hospitalist; ATTEND Hospitalist
CPT/HCPCS: 62270; 70450; 70496; 70498; 70546; 70553; 77003; 80048; 80053; 80061; 81001; 81240; 81241; 82040; 82042; 82164; 82784; 82945; 82948; 82962; 83036; 83520; 83735; 83873; 83916; 84100; 84155; 84157; 84443; 84703; 85025; 85302; 85306; 85610; 85613; 85651; 85652; 85670; 85730; 86038; 86147; 86403; 86406; 87015; 87070; 87086; 87102; 87116; 87205; 87206; 87327; 87449; 87801; 89051; 90761; 90774; 90775; 93005; 93306; 96361; 96374; 96375; 97110; 97116; 97161; 97166; 99285; A9585; C8952; J0780; J1200; J1885; J2930; J3250; J7030; Q9967